=== PATIENT | male | born 1955 | race Caucasian/White ===

== ENCOUNTER 2022-02-20 14:38 | Inpatient (IN) ==
[2022-02-20 15:23] LABS: Basophils # (auto) 0.03 K/uL (0-0.2); Basophils % (auto) 0.3 %; Eosinophils # (auto) 0.45 K/uL (0-0.50); Eosinophils % (auto) 4.6 %; Hematocrit (blood only) 30.1 % (40.1-51.0); Hemoglobin 9.8 g/dl (14.0-18.0); Immature Granulocytes # (auto) 0.05 K/uL (0.00-0.02); Immature Granulocytes % (auto) 0.5 %; Lymphocytes # (auto) 1.79 K/uL (1.2-3.4); Lymphocytes % (auto) 18.5 %; Mean Corpuscular Hemoglobin 28.1 pg (25.0-34.0); Mean Corpuscular Hgb Conc 32.6 g/dL (32.0-36.0); Mean Corpuscular Volume 86.2 fL (80.0-100.0); Mean Platelet Volume 8.3 fL (9.4-12.4); Monocytes % (auto) 11.3 %; Neutrophils # (auto) 6.28 K/uL (1.4-6.5); Neutrophils % (auto) 64.8 %; Platelet Count 258 K/uL (130-400); RDW Coefficient of Variation 13.3 % (11.5-14.5); RDW Standard Deviation 41.6 fL (36.4-46.3); Red Blood Count 3.49 M/uL (4.63-6.08)
[2022-02-20 15:44] LABS: Albumin Level 3.7 gm/dl (3.4-5.0); BUN Creatinine Ratio 22.2 (10-20); Bilirubin,Total 0.5 mg/dl (0.2-1.0); Creatinine Clr Calc Pharmacy 101.5 ml/min; Est GFR (African American) 101.4 ml/min; Est GFR (Non-African American) 87.5 ml/min; Globulin 3.7 gm/dl (2.5-4.0); Total Protein 7.4 gm/dl (6.0-8.3)
--- NOTE | 2022-02-20 17:05 | Emergency Department Note ---
Impression & Plan Hematoma of left knee region, Anemia, History of left knee replacement ED Provider Note NAME: ALECIA WILDER AGE: 66 SEX: M : 1955 ARRIVES VIA: Walk-In INFORMANT: [Patient][, ] ED PROVIDER(S): [Levi Casanova MD] CHIEF COMPLAINT: Referred by HISTORY OF PRESENT ILLNESS: The patient is a 66-year-old male who states that around a month ago, he had his left knee replaced. This was done by Dr. Mena of orthopedics. The patient states that ever since the surgery, he has had some swelling and some oozing/bleeding. The patient states that 3 days ago, the rupert were removed and he has been bleeding more. Today, he saw Dr. Gonzalez at the [facility] and he was referred to the ED for hospitalization and OR washout. They believe the patient has a large hematoma that requires orthopedic intervention. There has been no fever although, 3 days ago when the rupert were removed, the patient did have some chills. Patient is able to walk on the knee with minimal discomfort. He has not had cough, cold or congestion. He is on baby aspirin twice a day, no other blood thinning agents. REVIEW OF SYSTEMS: See HPI for pertinent positives and negatives. A total of ten systems were reviewed and were otherwise negative. PMHx/PSHx: See Below SOCIAL HISTORY: See Below. PHYSICAL EXAM: GENERAL: Patient is in no acute distress. HEENT: No acute trauma, normocephalic atraumatic, mucous membranes moist, no nasal congestion, no scleral icterus. NECK: No stridor, no adenopathy, no meningismus, trachea is midline. LUNGS: Clear to auscultation bilaterally, no wheeze, no rhonchi, breath sounds equal. HEART: Without murmurs gallops or rubs, regular rate and rhythm. ABDOMEN: Soft, nontender, bowel sounds positive, no peritonitis. EXTREMITIES: No cyanosis. The patient has oozing on his bandage that is across the left anterior knee. The rupert have been removed. There is a significant amount of prepatellar swelling with some erythema and warmth. The superior aspect of the wound does have an opening with a clot noted. NEUROLOGIC: Oriented x 3, no acute motor or sensory deficits, no focal weakness. SKIN: No jaundice, no diaphoresis. DIFFERENTIAL DIAGNOSIS: Hematoma, cellulitis, septic joint, coagulopathy, anemia, electrolyte imbalance, among others. EMERGENCY DEPARTMENT COURSE/PROCEDURES: MEDICAL DECISION MAKING: There is no leukocytosis. The patient's hemoglobin is low, this is about a four-point drop for him although, he is not in need of an emergent blood transfusion. There was a normal platelet count. No renal failure or significan t electrolyte abnormality. No concerning liver enzyme elevation. COVID test was negative. On exam, the patient had a large hematoma in the area of the left anterior knee. There was some surrounding erythema and warmth. He was not febrile or toxic. The patient was sent to the hospital for orthopedic intervention tomorrow. A hospital stay overnight was recommended by his orthopedist. I did speak with orthopedics. The patient is being hospitalized for his procedure tomorrow. The patient is aware of the need for the hospital stay. He is currently resting comfortably. Case management has been involved. Past Med/Surg History Medical History Osteoarthritis Surgical History History of arthroscopy of left knee History of arthroscopy of right knee History of back surgery History of carpal tunnel release of both wrists History of total right knee replacement Hx of colonoscopy Status post reverse total replacement of right shoulder Right reverse TSA (07/19/20): LMA#5 + PNB at [facility]. No issues noted per post-op anesthesia progress note. 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 Required: No Beliefs That Will Affect Care: Jain Jain Beliefs: Episcopalian Current Living Situation: Spouse current occupational status: employed Feels Safe at Home: Yes Physical Activity Frequency: 3-4 Times per Week Assistive Devices: Glasses Allergies Allergies Allergy/AdvReac Type Severity Reaction Status Date / Time No Known Allergies Allergy Verified 02/20/22 18:26 Home Meds Home Medications Medication Instructions Recorded Confirmed sildenafil 100 mg tablet (Viagra) 100 mg PO DAILY PRN INTERCOURSE 06/05/19 02/20/22 ascorbic acid (vitamin C) 500 mg 500 mg PO DAILY 12/24/21 02/20/22 tablet (Vitamin C) cholecalciferol (vitamin D3) 25 25 mcg PO DAILY 12/24/21 02/20/22 mcg (1,000 unit) capsule (Vitamin D3) oregano oil 1,500 mg capsule 1,500 mg PO DAILY 12/24/21 02/20/22 tangerine oil (bulk) ([place] 1 ea miscellaneous DAILY 12/24/21 02/20/22 Oil, Natural) turmeric 400 mg capsule 400 mg PO DAILY 12/24/21 02/20/22 zinc 50 mg tablet 50 mg PO DAILY 12/24/21 02/20/22 quercetin 500 mg capsule 500 mg PO DAILY 02/20/22 02/20/22 Previous Rx's Medication Instructions Recorded aspirin 81 mg tablet,delayed 81 mg PO BID #84 tabs 01/22/22 release oxycodone-acetaminophen 5 mg-325 1 tab PO Q6H PRN pain #30 tabs 01/22/22 mg tablet (Percocet) doxycycline hyclate 100 mg tablet 100 mg PO BID #20 tabs 02/20/22 sulfamethoxazole 800 1 tab PO BID #20 tabs 02/20/22 mg-trimethoprim 160 mg tablet (Bactrim DS) Results & Data (ED) Vital Signs Vital Signs - 24 hr 02/20/22 14:56 02/20/22 16:39 02/20/22 20:08 Temperature 37 C Temperature Source Temporal Artery Scan Pulse Rate 107 H Pulse Rate [Left] 80 104 H Respiratory Rate 18 20 18 Respiratory Effort / Characteristics Non-Labored Spontaneous Non-Labored Respiratory Depth Normal Normal Respiratory Pattern Regular Blood Pressure 120/73 Blood Pressure [Left Arm] 108/82 Blood Pressure Mean 88 Blood Pressure Mean [Left Arm] 90 Blood Pressure Position Sitting Pulse Oximetry 100 97 98 Oxygen Delivery Method Room Air Room Air Room Air Sepsis Recent Fever Within 48 Hours No Sepsis New/Unexplained Change in Mental Status No Sepsis Action Taken by Nursing No Action Required Home Medications Current Medication List: was personally reviewed by me Laboratory Data Attestation: I reviewed the patient's lab results. Result diagrams: 02/20/22 15:15 02/20/22 15:15 Lab Results 02/20/22 02/20/22 02/20/22 Range/Units 15:15 15:15 15:18 WBC 9.70 (4.8-10.8) K/ul RBC 3.49 L (4.63-6.08) M/uL Hgb 9.8 L (14.0-18.0) g/dl Hct 30.1 L (40.1-51.0) % MCV 86.2 (80.0-100.0) fL MCH 28.1 (25.0-34.0) pg MCHC 32.6 (32.0-36.0) g/dL RDW Std Deviation 41.6 (36.4-46.3) fL RDW Coeff of Moises 13.3 (11.5-14.5) % Plt Count 258 (130-400) K/uL MPV 8.3 L (9.4-12.4) fL Immature Gran % (Auto) 0.5 % Neut % (Auto) 64.8 % Lymph % (Auto) 18.5 % Forest % (Auto) 11.3 % Eos % (Auto) 4.6 % Baso % (Auto) 0.3 % Neut # (Auto) 6.28 (1.4-6.5) K/uL Lymph # (Auto) 1.79 (1.2-3.4) K/uL Forest # (Auto) 1.10 H (0.24-0.82) K/uL Eos # (Auto) 0.45 (0-0.50) K/uL Baso # (Auto) 0.03 (0-0.2) K/uL Immature Gran # (Auto) 0.05 H (0.00-0.02) K/uL ESR 61 H (0-20) mm/hr Sodium 137 (136-145) mmol/L Potassium 4.0 (3.5-5.1) mmol/L Chloride 103 (98-107) mmol/L Carbon Dioxide 28 (21-32) mmol/L Anion Gap 6 (3-11) BUN 20 (6-23) mg/dl Creatinine 0.90 (0.6-1.4) mg/dl Est Cr Clr Drug Dosing 101.5 ml/min Est GFR ( Amer) 101.4 ml/min Est GFR (Non-Af Amer) 87.5 ml/min BUN/Creatinine Ratio 22.2 H (10-20) Glucose 107 H (70-99(Fasting)) mg/dl Calcium 9.0 (8.5-10.1) mg/dl Total Bilirubin 0.5 (0.2-1.0) mg/dl AST 17 (13-39) U/L ALT 15 (7-52) U/L Alkaline Phosphatase 61 (34-104) U/L C-Reactive Protein (0-0.5) mg/dl Total Protein 7.4 (6.0-8.3) gm/dl Albumin 3.7 (3.4-5.0) gm/dl Globulin 3.7 (2.5-4.0) gm/dl Albumin/Globulin Ratio 1.0 (0.9-2) SARS-CoV-2, RNA, NAAT (NEGATIVE) 02/20/22 02/20/22 Range/Units 15:18 17:07 WBC (4.8-10.8) K/ul RBC (4.63-6.08) M/uL Hgb (14.0-18.0) g/dl Hct (40.1-51.0) % MCV (80.0-100.0) fL MCH (25.0-34.0) pg MCHC (32.0-36.0) g/dL RDW Std Deviation (36.4-46.3) fL RDW Coeff of Moises (11.5-14.5) % Plt Count (130-400) K/uL MPV (9.4-12.4) fL Immature Gran % (Auto) % Neut % (Auto) % Lymph % (Auto) % Forest % (Auto) % Eos % (Auto) % Baso % (Auto) % Neut # (Auto) (1.4-6.5) K/uL Lymph # (Auto) (1.2-3.4) K/uL Forest # (Auto) (0.24-0.82) K/uL Eos # (Auto) (0-0.50) K/uL Baso # (Auto) (0-0.2) K/uL Immature Gran # (Auto) (0.00-0.02) K/uL ESR (0-20) mm/hr Sodium (136-145) mmol/L Potassium (3.5-5.1) mmol/L Chloride (98-107) mmol/L Carbon Dioxide (21-32) mmol/L Anion Gap (3-11) BUN (6-23) mg/dl Creatinine (0.6-1.4) mg/dl Est Cr Clr Drug Dosing ml/min Est GFR ( Amer) ml/min Est GFR (Non-Af Amer) ml/min BUN/Creatinine Ratio (10-20) Glucose (70-99(Fasting)) mg/dl Calcium (8.5-10.1) mg/dl Total Bilirubin (0.2-1.0) mg/dl AST (13-39) U/L ALT (7-52) U/L Alkaline Phosphatase (34-104) U/L C-Reactive Protein 7.07 H (0-0.5) mg/dl Total Protein (6.0-8.3) gm/dl Albumin (3.4-5.0) gm/dl Globulin (2.5-4.0) gm/dl Albumin/Globulin Ratio (0.9-2) SARS-CoV-2, RNA, NAAT NEGATIVE (NEGATIVE) Administered Medications Sodium Chloride (Nss 1000ml) 1,000 mls @ 80 mls/hr IV .[id number] AWA Stop: 03/22/22 20:31 Last Admin: 02/20/22 22:24 Dose: 80 mls/hr Documented By: AB Discharge Plan Visit Data Chief Complaint: Referred by Doctor Stated Complaint: KNEE REPLACEMENT 01/26, REF BY , HEMOTOMA ED Provider: Levi Casanova Discharge Problem: Hematoma of left knee region, Anemia, History of left knee replacement Patient Disposition: Admitted As Inpatient Condition: Good Discharge Instructions Interventions: ED Discharge Assessment Last Done: 02/20/22 20:11
--- NOTE | 2022-02-20 17:28 | History & Physical Report ---
Date of Service February 20, 2022 Assessment & Plan (1) Hematoma of left knee region: We will plan to proceed with the irrigation and debridement of the left knee hematoma first thing tomorrow morning. He will be n.p.o. past midnight tonight. He understands the risk, benefits, and alternatives to procedures like to proceed. Time was spent scribing the procedure and postop expectations. He understands he may require a full knee polyethylene exchange as well if I am concerned for infection. I will obtain a CBC, CRP, and sed rate preoperatively. History of Present Illness Chief Complaint: Hematoma left knee. Primary Care Provider: Rae Gutierrez PA-C Rolan is a pleasant 66-year-old male who underwent a left knee replacement 4 weeks ago. Postoperatively he developed a hematoma of his left knee. It was never really draining. We are trying to let it absorb on its own. He had a sutures out over a week ago. Unfortunately still dealing with the hematoma and he started to have some breakdown of the wound. He started to have a little bit of bloody discharge. There is no signs of infection. He is not having much pain deep within the knee. He came to the emergency room for evaluations. Orthopedics decided to admit him to the hospital for open irrigation debridement of a left knee hematoma tomorrow.. Allergies Allergy/AdvReac Type Severity Reaction Status Date / Time No Known Allergies Allergy Verified 12/24/21 10:06 Home Medications Medication Instructions Recorded Confirmed Type sildenafil 100 mg tablet (Viagra) 100 mg PO DAILY PRN INTERCOURSE 06/05/19 01/26/22 History Quercetin 1 dose PO DAILY 12/24/21 01/26/22 History ascorbic acid (vitamin C) 500 mg 500 mg PO DAILY 12/24/21 01/26/22 History tablet (Vitamin C) cholecalciferol (vitamin D3) 25 25 mcg PO DAILY 12/24/21 01/26/22 History mcg (1,000 unit) capsule (Vitamin D3) oregano oil 1,500 mg capsule 1,500 mg PO DAILY 12/24/21 01/26/22 History tangerine oil (bulk) ([place] 1 ea miscellaneous DAILY 12/24/21 01/26/22 History Oil, Natural) turmeric 400 mg capsule 400 mg PO DAILY 12/24/21 01/26/22 History zinc 50 mg tablet 50 mg PO DAILY 12/24/21 01/26/22 History aspirin 81 mg tablet,delayed 81 mg PO BID #84 tabs 01/22/22 01/26/22 Rx release celecoxib 200 mg capsule (Celebrex) 200 mg PO BID #28 caps 01/22/22 01/26/22 Rx oxycodone-acetaminophen 5 mg-325 1 tab PO Q6H PRN pain #30 tabs 01/22/22 01/26/22 Rx mg tablet (Percocet) doxycycline hyclate 100 mg tablet 100 mg PO BID #20 tabs 02/20/22 Rx sulfamethoxazole 800 1 tab PO BID #20 tabs 02/20/22 Rx mg-trimethoprim 160 mg tablet (Bactrim DS) Past Med/Surg History Medical History Osteoarthritis Surgical History History of arthroscopy of left knee History of arthroscopy of right knee History of back surgery History of carpal tunnel release of both wrists History of total right knee replacement Hx of colonoscopy Status post reverse total replacement of right shoulder Right reverse TSA (07/19/20): LMA#5 + PNB at [facility]. No issues noted per post-op anesthesia progress note. 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 Physical Exam On physical examination of the left knee, there is a large anterior hematoma. I am able to express a little bit of serosanguineous discharge. There is no erythema. There is no pus or any signs of infection.. Constitutional WD/WN, vitals as above Eyes PERRL, conjunctivae normal, anicteric sclerae ENMT external ear and nose normal, oropharynx normal Neck trachea midline, no thyromegaly Respiratory normal respiratory effort, lungs clear to auscultation Cardiovascular RRR, no murmur, no edema Gastrointestinal (Abdomen) normal bowel sounds, soft, nontender, no hepatosplenomegaly Skin no rashes, warm and dry Psychiatric A+Ox3, euthymic affect Results & Data Results & Data Laboratory Results . Diagnostic Findings . PG Care Time/CCT Total # of Minutes Spent Total Time Spent with Patient: Total time spent is greater than 50% in coordination of care (as documented) at patient's floor/unit and/or counseling patient: Coding Level of Care Code 65355 Initial Inpt Care Lvl 2 (57 - DECISION FOR SURGERY) Diagnoses Hematoma of left knee region S80.02XA
[2022-02-20] MEDS ORDERED: oxyCODONE/ACETAMINOPHEN 5mg/325mg TAB PO PRN (20:32)
[2022-02-20] MEDS: SODIUM CHLORIDE 0.9% 1000ML 1,000 ML IV SCH (22:24)
[2022-02-21] MEDS ORDERED: ceFAZolin 2000MG 2,000 MG/15 ML SYR IV SCH (06:00)
[2022-02-21] MEDS ORDERED: PROPOFOL IV EMULSION 10 MG/ML 20 ML VIAL IV ONE (07:03)
[2022-02-21] MEDS ORDERED: DEXAMETHASONE SOD INJ 4 MG/ML VIAL ONE (07:03)
[2022-02-21] MEDS ORDERED: fentaNYL citrate 100 MCG/2 ML VIAL ONE ×2 (07:03)
[2022-02-21] MEDS ORDERED: MIDAZOLAM HCL 1 MG/ML 2ML VIAL ONE (07:03)
[2022-02-21] MEDS ORDERED: ONDANSETRON INJ 2 MG/ML 2 ML VIAL ONE (07:03)
--- NOTE | 2022-02-21 07:34 | Anesthesiology Consultation ---
Date of Service February 21, 2022 Assessment & Plan (1) Encounter for pre-operative examination: Chart Review Chart Review: Acceptable Risk for Surgery and Patient NOT seen in Pre Admission Testing Consults Requested none History Surgery Operation Date: 02/21/22 07:30 Proposed Procedures p Left Incision and Drainage Hematoma Knee - Wellington Mena DO s Possible Poly Exchange Left Knee - Wellington Mena DO Height/Weight Height: 6 ft 2 in Weight: 103.4 kg Allergies Allergy/AdvReac Type Severity Reaction Status Date / Time No Known Allergies Allergy Verified 02/20/22 18:26 Medications Home Medications Medication Instructions Recorded Confirmed Last Taken sildenafil 100 mg tablet (Viagra) 100 mg PO DAILY PRN INTERCOURSE 06/05/1912/26/21 ascorbic acid (vitamin C) 500 mg 500 mg PO DAILY 12/24/21 02/20/22 01/22/22 tablet (Vitamin C) cholecalciferol (vitamin D3) 25 25 mcg PO DAILY 12/24/21 02/20/22 01/22/22 mcg (1,000 unit) capsule (Vitamin D3) oregano oil 1,500 mg capsule 1,500 mg PO DAILY 12/24/21 02/20/22 01/20/22 tangerine oil (bulk) ([place] 1 ea miscellaneous DAILY 12/24/21 02/20/2201/08 Oil, Natural) turmeric 400 mg capsule 400 mg PO DAILY 12/24/21 02/20/22 12/26/21 zinc 50 mg tablet 50 mg PO DAILY 12/24/21 02/20/22 01/22/22 aspirin 81 mg tablet,delayed 81 mg PO BID #84 tabs 01/22/22 02/20/22 Unknown release oxycodone-acetaminophen 5 mg-325 1 tab PO Q6H PRN pain #30 tabs 01/22/22 02/20/22 Unknown mg tablet (Percocet) doxycycline hyclate 100 mg tablet 100 mg PO BID #20 tabs 02/20/22 02/20/22 Unknown quercetin 500 mg capsule 500 mg PO DAILY 02/20/22 02/20/22 Unknown sulfamethoxazole 800 1 tab PO BID #20 tabs 02/20/22 02/20/22 Unknown mg-trimethoprim 160 mg tablet (Bactrim DS) Active Medications Generic Name Dose Route Start Last Admin Trade Name Jose R PRN Reason Stop Dose Admin Sodium Chloride 1,000 mls @ 80 mls/hr 02/20/22 20:32 02/20/22 22:24 Nss 1000ml IV 03/22/22 20:31 80 mls/hr .[id number] AWA Administration NPO Date Last Intake of Fluids: 02/20/22 Time Last Intake of Fluids: 23:28 Date Last Intake of Solids: 02/20/22 Time Last Intake of Solids: 21:00 Past Medical History Medical History Osteoarthritis Past Family History Family History Father Diabetes Colorectal cancer Mother Brain cancer Diabetes Other No family history of adverse response to anesthesia Past Surgical History Surgical History History of arthroscopy of left knee History of arthroscopy of right knee History of back surgery History of carpal tunnel release of both wrists History of total right knee replacement Hx of colonoscopy Status post reverse total replacement of right shoulder Right reverse TSA (07/19/20): LMA#5 + PNB at [facility]. No issues noted per post-op anesthesia progress note. Social History Smoking Status: Never smoker Hx Alcohol Use: No Hx Substance Use: No substance use type: does not use Physical Exam Vital Signs Last Vital Signs Temp 37.5 C 02/20/22 20:20 Pulse 111 H 02/20/22 23:15 Resp 14 02/20/22 20:20 BP 138/84 02/20/22 20:20 Pulse Ox 100 02/20/22 20:20 O2 Del Method 02/20/22 20:20 Testing Laboratory Results 02/20/22 15:15 02/20/22 15:15 Electrocardiogram Date: 02/20/22 Findings: + ST @ (104)
--- NOTE | 2022-02-21 07:34 | History & Physical Bridge Note ---
Date of Service February 21, 2022 History & Physical Bridge Note I have examined the patient, reviewed the History & Physical and in the interval since the performance of the History & Physical I have noted the following changes of clinical significance: no changes noted
[2022-02-21] MEDS ORDERED: HYDROmorphone INJ 1 MG/ML SYRINGE IV PRN (07:36)
[2022-02-21] MEDS ORDERED: ATROPINE SULFATE 0.1 MG/ML 10ML SYR IV PRN (07:36)
[2022-02-21] MEDS ORDERED: ONDANSETRON INJ 2 MG/ML 2 ML VIAL IV PRN (07:36)
[2022-02-21] MEDS ORDERED: PHENYLEPHRINE 100MCG/ML 5ML SYR IV PRN (07:36)
[2022-02-21] MEDS ORDERED: LABETALOL HCL IV 5 MG/ML 20ML IV PRN (07:36)
[2022-02-21] MEDS ORDERED: MEPERIDINE HCL 25 MG/ML CARP/VIAL IV PRN (07:36)
[2022-02-21] MEDS ORDERED: fentaNYL citrate 100 MCG/2 ML VIAL IV PRN (07:36)
[2022-02-21] MEDS ORDERED: ePHEDrine sulfate 50 MG/ML AMP IV PRN (07:36)
[2022-02-21] MEDS ORDERED: KETOROLAC 30 MG/ML VIAL ONE (08:15)
--- NOTE | 2022-02-21 08:37 | Operative Report ---
PG Post Operative Report Pre & Post Diagnosis Operation Date: 02/21/22 07:30 Pre-Op Diagnosis: Left knee hematoma Post-Op Diagnosis: Left knee hematoma I identified the patient and participated in the time-out.: Yes Procedure Operation Date: 02/21/22 07:30 Actual Procedures pEvacuation hematoma of the left knee (Left) - Wellingotn Mena DO Surgeon Wellington Mena, Glacing Machine Tender Wellington Velasco PA-C Estimated Blood Loss 20 Findings Consistent with Post-Op Diagnosis Large hematoma of the left knee Specimens Intra-articular fluid aspiration sent for cell count with cultures and sensitivity Indications Rloan is a pleasant 66-year-old male who underwent a knee replacement about 4 weeks ago. He had a lot of intra-articular oozing. I was able to control most of it after the tourniquet was down. He was on aspirin for DVT prophylaxis. Unfortunately he developed a large hematoma of his left knee. The incision looks good and there was no signs of infection. We continue to treat her conservatively with ice and elevation. Unfortunately the hematoma started to break down some of his wound and he was beginning to have some serous drainage. He came to the emergency room. Sed rate and CRP were moderately elevated. He had no fever and normal white blood cell count. He says his knee has been improving overall but has been hindered by the large anterior hematoma. He has had no significant increase in pain in the left knee. He was admitted to the orthopedic service for open evacuation hematoma of the left knee. Description of Procedure On February 21 Rolan was brought down from the hospital room to the preoperative holding area. The operative extremity identified and signed. He was given 2 g of Ancef. He was taken back the operating room and laid on the table in supine position. He was put under general anesthesia. The right knee was prepped and draped in sterile fashion. A timeout was done. The patient and the operative extremity was properly identified. The middle third of the incision was opened back up. There was no signs of infection. There is no purulent discharge. There was a very large hematoma that was evacuated. It was mostly coagulated. Significant time was spent evacuating the entire hematoma through the open incision. Once the hematoma was fully evacuated the area anterior to the extensor mechanism was irrigated with 3 L normal saline solution. The wound did not seem to communicate with the knee. A spinal needle was used to aspirate the left knee. I was able to aspirate about 25 cc of straw-colored fluid. It did not appear to be infected. I did se nd this to lab for cell count with differential as well as cultures and sensitivities. I put his knee through a full range of motion and everything felt to be stable. The wound was once again irrigated. The tourniquet was deflated and hemostasis was easily controlled. There was not much bleeding at this time. I do not feel the need to place a drain. The incision was closed with 2-0 Vicryl and 2-0 nylon suture in a mattress fashion. He was then placed in a soft compressive dressing. He was then extubated and transferred to a [facility]. He was taken to the postanesthesia care unit in stable condition. He tolerated the procedure well. I attest to the content of the Intraoperative Record and any orders documented therein. Any exceptions are noted below.
--- NOTE | 2022-02-21 08:55 | Anesthesiology Progress Note ---
Date of Service February 21, 2022 Anesthesia Post Procedure Vital Signs Vital Signs: Temp Pulse Pulse Pulse Resp BP BP 02/20/22 23:15 111 H 02/20/22 20:20 37.5 C 117 H 14 02/20/22 20:08 104 H 18 108/82 02/20/22 16:39 80 20 02/20/22 14:56 37 C 107 H 18 120/73 BP Pulse Ox O2 Del Method 02/20/22 23:15 02/20/22 20:20 138/84 100 Room Air 02/20/22 20:08 98 Room Air 02/20/22 16:39 97 Room Air 02/20/22 14:56 100 Room Air Pain Intensity Left Knee: Pain Intensity: 3 Transfer of Care Handoff Completed per policy Notes Mental Status: alert / awake / arousable Patient Amnestic to Procedure: Yes Nausea / Vomiting: adequately controlled Pain: adequately controlled Airway Patency, RR, SpO2: stable & adequate BP & HR: stable & adequate Hydration State: stable & adequate Anesthetic Complications: no major complications apparent and Pt Satisfied with anesthetic care Notes: The patient is awake and comfortable.
[2022-02-21 09:17] LABS: Mononuclear WBC Synovial 31.5 %; Polynuclear WBC Synovial 68.5 %
[2022-02-21 09:18] LABS: Appearance Synovial Fluid Bloody; Color Synovial Fluid Red; RBC Synovial Fluid (A) 63000 /uL; Source Synovial Fluid Knee; WBC Synovial Fluid (A) 1333 /ul (0-200)
[2022-02-21] MEDS ORDERED: MAGNESIUM HYDROXIDE SUSP 30 ML UDC PO PRN (09:21)
[2022-02-21] MEDS ORDERED: bisacodyL 10 MG SUPP PR PRN (09:21)
[2022-02-21] MEDS ORDERED: SODIUM CHLORIDE 0.9% 1000ML 1,000 ML IV SCH (09:21)
[2022-02-21] MEDS ORDERED: NALOXONE HCL 0.4 MG/1 ML VIAL/CARP IV PRN (09:21)
[2022-02-21] MEDS ORDERED: METOCLOPRAMIDE HCL INJ 5 MG/ML 2 ML VIAL IV PRN (09:21)
[2022-02-21] MEDS: SODIUM CHLORIDE 0.9% 1000ML 1,000 ML IV SCH ×2 (10:12→21:40)
[2022-02-21] MEDS: ASPIRIN 81 MG ECTAB PO SCH ×2 (10:40→21:40)
[2022-02-21] MEDS: DOCUSATE SODIUM 100 MG CAP PO SCH ×2 (10:40→21:39)
[2022-02-21] MEDS: MULTIVITAMIN TAB PO SCH (10:40)
[2022-02-21] MEDS: KETOROLAC TROMETHAMINE 15 MG/ML VIAL IV SCH ×3 (10:42→21:39)
--- NOTE | 2022-02-21 11:15 | Electrocardiogram Report ---
Test Reason : Blood Pressure : / mmHG Vent. Rate : 104 BPM Atrial Rate : 104 BPM P-R Int : 158 ms QRS Dur : 084 ms QT Int : 340 ms P-R-T Axes : 040 -35 027 degrees QTc Int : 447 ms Sinus tachycardia Left anterior fascicular block Abnormal ECG When compared with ECG of 29-DEC-2021 10:15, No significant change was found Confirmed by Chuy Foster ([id number]) on 02/21/2022 11:15:21 AM Referred By: Wellington Mena Confirmed By:Chuy Foster
[2022-02-21] MEDS: ceFAZolin 2000MG 2,000 MG/15 ML SYR IV SCH ×2 (15:02→21:52)
[2022-02-21] MEDS ORDERED: SENNA 8.6 MG TAB PO SCH (21:00)
[2022-02-22] MEDS: KETOROLAC TROMETHAMINE 15 MG/ML VIAL IV SCH ×2 (03:49→11:18)
[2022-02-22] MEDS ORDERED: dexAMETHasone 4 MG TAB PO SCH (08:00)
[2022-02-22] MEDS: DOCUSATE SODIUM 100 MG CAP PO SCH (08:37)
[2022-02-22] MEDS: MULTIVITAMIN TAB PO SCH (08:38)
[2022-02-22] MEDS: ASPIRIN 81 MG ECTAB PO SCH (08:38)
--- NOTE | 2022-02-22 08:51 | Orthopedic Progress Note ---
Date of Service February 22, 2022 Assessment & Plan (1) Status post left knee replacement: Overall he is doing very well. The initial Gram stains from the intra-articular aspiration did not show any organisms. The cell count did not show any evidence of infection. Overall he is doing well. He can be discharged home later today. He is on aspirin for DVT prophylaxis. He will be seen by physical therapy today for ambulation and range of motion exercises. He will follow-up orthopedics in 2 weeks. Eric Gongora was seen and examined at bedside this morning. Overall is doing very well. He is not having much pain in the left knee. He has been up and ambulated to the bathroom. He has no complaints.. Review of Systems All systems reviewed & are unremarkable except as noted in HPI & below. Physical Exam On physical examination of left knee, the dressing is clean and dry. His leg is out full extension. He has active dorsiflexion and plantarflexion of the left ankle.. Results & Data Results & Data Laboratory Results . Diagnostic Findings . PG Care Time/CCT Total # of Minutes Spent Total Time Spent with Patient: Total time spent is greater than 50% in coordination of care (as documented) at patient's floor/unit and/or counseling patient: Coding Level of Care Code 64332 Post Operative Follow-Up Diagnoses Status post left knee replacement Z96.652
--- NOTE | 2022-02-22 08:52 | Discharge Summary ---
Date of Service February 22, 2022 Admission HPI (Per Admitting) Rolan is a pleasant 66-year-old male who underwent a left knee replacement 4 weeks ago. Postoperatively he developed a hematoma of his left knee. It was never really draining. We are trying to let it absorb on its own. He had a sutures out over a week ago. Unfortunately still dealing with the hematoma and he started to have some breakdown of the wound. He started to have a little bit of bloody discharge. There is no signs of infection. He is not having much pain deep within the knee. He came to the emergency room for evaluations. Orthopedics decided to admit him to the hospital for open irrigation debridement of a left knee hematoma tomorrow.. Admission Exam (Per Admitting) On physical examination of the left knee, there is a large anterior hematoma. I am able to express a little bit of serosanguineous discharge. There is no erythema. There is no pus or any signs of infection.. Principal Diagnosis Same as "Discharge Diagnosis" noted below under Discharge Instructions. Discharge Exam On physical examination of left knee, the dressing is clean and dry. His leg is out full extension. He has active dorsiflexion and plantarflexion of the left ankle.. Discharge Data Consultations 02/20/22 17:34 ED Decision to Admit Stat Procedures Performed Operation Date: 02/21/22 07:30 Actual Procedures p Left Incision and Drainage Hematoma Knee(Left) - Wellington Mena DO Hospital Course (1) Status post left knee replacement: On February 20 2022 Rolan arrived at [facility] emergency room with a large hematoma of the left knee and early stages of wound breakdown. He is about 4 weeks status post knee replacement surgery. He was admitted to the orthopedic service. The following day he was taken to the operating room and underwent an evacuation of the hematoma. I also aspirated the knee joint and sent it for lab work-up. There were no signs of infection throughout the case. Postoperatively he was started on Ancef for antimicrobial prophylaxis. He was started back on his aspirin and transferred to the general orthopedic floors. On postop day #1, his vital signs were stable and his pain was well controlled. His knee was feeling much better. He was up and ambulating to the bathroom without any difficulty. The initial gram stain showed no organisms. The cell count did not show any signs of infection. He was then discharged home on oral pain medications and aspirin for DVT prophylaxis. He will follow with orthopedics in 2 weeks. PG Care Time/CCT Total # of Minutes Spent Total Time Spent with Patient: Total time spent is greater than 50% in coordination of care (as documented) at patient's floor/unit and/or counseling patient: Discharge Plan Discharge Items Patient Disposition: Home - Home Health Services Reason For Visit: LEFT KNEE HEMATOMA Discharge Diagnosis: Evacuation hematoma left knee Condition on Discharge: Good Activity: Per Instructions section Non-emergency contact: Surgeon Call non-emergency contact if: your wound has increased redness and your wound has increased drainage Follow-up/Referrals: Rae Gutierrez PA-C [Primary Care Provider] - Diet: Regular Addtl Attending Provider Instructions: Activity and Therapy Recommendations: * If you are using [facility] then therapy will be provided at your home until they feel you have accomplished all of your goals. * If you are using [facility] then Physical Therapy will be provided until they feel you are ready to start Outpatient Physical Therapy. * If you are not using home therapy then Outpatient Physical Therapy should start about 3-5 days from your day of surgery. Therapy will last about 6-10 weeks * It is important not to put a pillow under your knee when you are relaxing or sleeping. It is just as important to make sure you are getting your knee perfectly straight as it is to regain your knee bend. * You were shown a series of exercises in the hospital. Do these exercises three times each day including the exercises you were shown in physical therapy. * Get up and walk several times each day. For the first four weeks, try not to stand or walk for more than one hour at a time. If you do stand or walk for more than one hour, you will not hurt anything, but your leg will likely swell. * As you feel comfortable, you may change from the walker or crutches to a cane and then to independent walking. Medications: * Narcotic You will likely be sent home from the hospital with a prescription for the narcotic pain medication that worked best throughout your stay. * Aspirin Most patients will be required to take Aspirin 81mg twice a day for 6 weeks after surgery. This is obtained [id number] and a prescription is not necessary. * Other medications may be prescribed for specific circumstances. If you have any questions, please call the office at . * Resume previous home medications unless otherwise instructed TEDs/Elastic Stockings: The white elastic stockings help limit swelling and prevent blood clots from forming in your legs.~ The more you wear them, the more they work. Wear them for six weeks. Dressing Care: The dressing can be changed after physical therapy on postop day #1. Daily dry dressing changes for a few days, especially if the incision is still draining some. If the incision is not draining then you may leave the rupert open to air. If there is a little bit of drainage or if the rupert are getting stuck on your clothing then cover the incision with a dry dressing. The rupert will be removed at your 2 week follow-up appointment. Showering: You may shower 5 days from the day of surgery as long as the incision is no longer draining. You may shower with the rupert exposed. Let soapy water run over the rupert and pat them dry. Do not scrub or soak the incision. Things To Watch For: * Drainage from the incision site that occurs more than one week after your surgery. * Increased redness at the incision site. * Fever above 102 degrees Fahrenheit. * Unusual chest pain or shortness of breath. * Call [facility] at with any of the above problems Follow-Up Visit: Follow-up with Dr. Mena 2 to 3 weeks after the day of surgery Please call the office to schedule an appointment for a time that works for you [phone] Office Instructions: More detailed instructions as well as Frequently Asked Questions were provided in a folder by our office when you signed-up for surgery. Please review these instructions when you get home. If you have any further questions or concerns, please feel free to call the office at [phone] Pending Studies at Discharge: No Stand-Alone Forms: My [facility] [employer] [facility], Smoking Cessation Medications and DC Order Prescriptions: Continued aspirin 81 mg tablet,delayed release (DR/EC) 81 mg PO BID Qty: 84 0RF sulfamethoxazole-trimethoprim [Bactrim DS] 800-160 mg tablet 1 tab PO BID Qty: 20 0RF doxycycline hyclate 100 mg tablet 100 mg PO BID Qty: 20 0RF sildenafil [Viagra] 100 mg Tablet 100 mg PO DAILY PRN (Reason: INTERCOURSE) ascorbic acid (vitamin C) [Vitamin C] 500 mg Tablet 500 mg PO DAILY zinc 50 mg Tablet 50 mg PO DAILY cholecalciferol (vitamin D3) [Vitamin D3] 25 mcg (1,000 unit) Capsule 25 mcg PO DAILY oregano oil 1,500 mg Capsule 1,500 mg PO DAILY tangerine oil (bulk) [[place] Oil, Natural] Oil 1 ea MISCELLANEOUS DAILY turmeric 400 mg Capsule 400 mg PO DAILY quercetin 500 mg Capsule 500 mg PO DAILY oxycodone-acetaminophen [Percocet] 5-325 mg tablet 1 tab PO Q6H PRN (Reason: pain) Qty: 20 0RF Discharge Orders: Discharge Order (Routine); Ordered 02/22/22 Ordered By: Wellington Mena Admission Data Admit Date/Time: 02/20/22 20:28 Attending Provider: Wellington Mena Admit Provider: Wellington Mena Primary Care Provider: Rae Gutierrez Other Providers: [facility] ; Negrito Gonzalez
[2022-02-22] MEDS: SODIUM CHLORIDE 0.9% 1000ML 1,000 ML IV SCH (11:18)
== END 2022-02-22 12:06 | disposition home health service (06) | DRG 556 ==
LOC: ED 14:38 → 3E 20:11

== ENCOUNTER 2022-06-05 11:28 | Inpatient (IN) ==
--- NOTE | 2022-06-03 12:41 | Anesthesiology Consultation ---
Date of Service June 03, 2022 Assessment & Plan (1) Encounter for pre-operative examination: Chart Review Chart Review: Acceptable Risk for Surgery and Patient NOT seen in Pre Admission Testing -COVID screening: Per PAT nursing assessment on 06/03/22. No known COVID-19 positive contacts or current COVID-19 related symptoms. Travel screen negative. Patient is NOT vaccinated for Covid. At surgeon discretion if preop Covid testing being done. I&D Left Knee 02/21/22= Done under [facility] with LMA #5. Atraumatic x 1 attempt History Surgery Operation Date: 06/05/22 14:00 Proposed Procedures p Open Incision and Drainage, Polyethyline Exchange Left Knee - Wellington Mena DO Height/Weight Height: 6 ft 2 in Weight: 97.522 kg Allergies Allergy/AdvReac Type Severity Reaction Status Date / Time No Known Allergies Allergy Verified 06/03/22 08:33 Medications Home Medications Medication Instructions Recorded Confirmed Last Taken sildenafil 100 mg tablet (Viagra) 100 mg PO DAILY PRN INTERCOURSE 06/05/19 06/03/22 12/26/21 ascorbic acid (vitamin C) 500 mg 500 mg PO QAM 12/24/21 06/03/22 01/22/22 tablet (Vitamin C) cholecalciferol (vitamin D3) 25 25 mcg PO QAM 12/24/21 06/03/22 01/22/22 mcg (1,000 unit) capsule (Vitamin D3) oregano oil 1,500 mg capsule 1,500 mg PO DAILY PRN Cold Symptoms 12/24/21 06/03/22 01/20/22 tangerine oil (bulk) ([place] 1 ea miscellaneous QAM 12/24/21 06/03/22 01/22/22 Oil, Natural) zinc 50 mg tablet 50 mg PO QAM 12/24/21 06/03/22 01/22/22 quercetin 500 mg capsule 500 mg PO QAM 02/20/22 06/03/22 Unknown Past Medical History Medical History Osteoarthritis Past Family History Family History Father Diabetes Colorectal cancer Mother Brain cancer Diabetes Other No family history of adverse response to anesthesia Past Surgical History Surgical History History of arthroscopy of left knee History of arthroscopy of right knee History of back surgery History of carpal tunnel release of both wrists History of surgery evacuation of hematoma of left knee 02/21/22 @ [facility] History of total right knee replacement Hx of colonoscopy Status post left knee replacement (~01/2022) 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 No issues noted per post-op anesthesia progress note. Social History Smoking Status: Never smoker Do You Dip or Chew Tobacco: No Hx Alcohol Use: No Hx Substance Use: No substance use type: does not use Lab Results Anesthesia Preop Results Results Anesthesia Widget: WBC 10.33 K/ul (4.8-10.8) 06/01/22 Hgb 10.2 g/dl (14.0-18.0) L 06/01/22 Hct 32.4 % (40.1-51.0) L 06/01/22 Plt 367 K/uL (130-400) 06/01/22 Na 135 mmol/L (136-145) L 06/01/22 K 3.8 mmol/L (3.5-5.1) 06/01/22 Cl 100 mmol/L (98-107) 06/01/22 CO2 28 mmol/L (21-32) 06/01/22 BUN 18 mg/dl (6-23) 06/01/22 Creat 0.79 mg/dl (0.6-1.4) 06/01/22 Glucose Level 84 mg/dl (70-99(Fasting)) 06/01/22 PT 11.2 Seconds (9.0-12.0) 06/01/22 PTT 33.0 Seconds (21.0-31.0) H 06/01/22 INR 1.1 (0.9-1.1) 06/01/22 Blood Type A Positive 06/01/22 Antibody Screen NEGATIVE 06/01/22 Testing Laboratory Results Chronic anemia- stable since 02/2022. Surgeon's office informed of anemia- will leave to surgeon's discretion on how to proceed Electrocardiogram Date: 02/20/22 Sinus tachycardia at 104bpm Left anterior fascicular block When compared to EKG from December 29, 2021- no significant change was found per cardio Chest X-Ray Date: 12/29/21 FINDINGS: No lines and tubes are seen. The aorta is tortuous. The remainder of the cardiomediastinal silhouette is unremarkable. The lungs are clear. No evidence of pleural effusion or pneumothorax. Right shoulder total arthroplasty is partially visualized. IMPRESSION: No acute chest disease.
[~2022-06-05 11:28] MED LIST: ACETAMINOPHEN 500 MG TAB PO SCH; FAMOTIDINE 20 MG TAB PO SCH; GABAPENTIN 300 MG CAP PO SCH; Ketorolac (*for OR use only*) 30 MG, dexAMETHasone 4 MG, KETAMINE HCL (**OR use only) 1... INFIL SCH; LR 500ML BOLUS, THEN 15ML/HR IV SCH; LR 60ML/HR IV SCH; TRANEXAMIC ACID 1,000 MG **IV Intra-op IV SCH; TRANEXAMIC ACID 1,000 MG **IV Pre-op IV SCH; ceFAZolin 2000MG 2,000 MG/15 ML SYR IV SCH; dexAMETHasone 4 MG TAB PO SCH
--- NOTE | 2022-06-05 13:08 | History & Physical Bridge Note ---
Date of Service June 05, 2022 History & Physical Bridge Note I have examined the patient, reviewed the History & Physical and in the interval since the performance of the History & Physical I have noted the following changes of clinical significance: no changes noted
[2022-06-05] MEDS ORDERED: LIDOCAINE 2% 20 MG/ML 5 ML SYR IV ONE (13:16)
[2022-06-05] MEDS ORDERED: ONDANSETRON INJ 2 MG/ML 2 ML VIAL ONE (13:16)
[2022-06-05] MEDS ORDERED: PROPOFOL IV EMULSION 10 MG/ML 20 ML VIAL IV ONE (13:16)
[2022-06-05] MEDS ORDERED: fentaNYL citrate 100 MCG/2 ML VIAL ONE ×3 (13:16→15:05)
[2022-06-05] MEDS ORDERED: MIDAZOLAM HCL 1 MG/ML 2ML VIAL ONE (13:16)
[2022-06-05] MEDS ORDERED: DAKIN'S SOLN 0.25% HALF STRENGTH 473ML BTL EXT ONE (13:50)
[2022-06-05] MEDS ORDERED: ONDANSETRON INJ 2 MG/ML 2 ML VIAL IV PRN ×2 (13:57→18:42)
[2022-06-05] MEDS ORDERED: ePHEDrine sulfate 50 MG/ML AMP IV PRN (13:57)
[2022-06-05] MEDS ORDERED: ATROPINE SULFATE 0.1 MG/ML 10ML SYR IV PRN (13:57)
[2022-06-05] MEDS ORDERED: DEXAMETHASONE SOD INJ 4 MG/ML VIAL ONE (14:35)
--- NOTE | 2022-06-05 16:10 | Operative Report ---
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 He underwent multiple aspirations and injections in our office. He finally elected to proceed with a left total knee arthroplasty. In January 2022 he underwent a left knee replacement. Postoperatively the knee fell back up with a hematoma. After about 3 to 4 weeks he began to have some wound breakdown's was taken back to the operating room and underwent a evacuation of the hematoma. The knee joint itself was aspirated. The joint fluid looked okay. There was really no signs of infection throughout the procedure. At 3 days the knee showed no growth. He was improving. I followed him up in the office. It was not until 2 weeks after the cultures did something grow positive for staph aureus . For the first few months he said he continued to improve with his knee. His CRP was starting to return to normal. Then over the past 3 to 4 weeks he has been more painful and swollen with his left knee. Most of his pain and swelling appear to be on the medial aspect where there is been a hematoma. Repeat sed rate and CRP were elevated. He elected to proceed with an open I&D and probably exchange of the left knee. Description of Procedure On June 05, [address] [facility] for the above procedure. He was seen in the preoperative holding area and the operative extremity was identified and signed. He was taken back the operating room and laid on the table in supine position. She was put under general anesthesia. The left knee was prepped and draped in sterile fashion. A timeout was done. The patient and the operative extremity was properly identified. The previous midline incision was opened back up. Dissection was taken down to the extensor mechanism. After dissecting a little bit medially there was a large infected hematoma along the medial aspect. This was cultured and evacuated. An arthrotomy was then made down to the knee joint. The tissue was very inflamed and thickened. There was actually only a trace amount of fluid within the knee joint. This was assumed to be infected and cultured. Significant time was then spent doing a debridement of the medial and lateral gutters. The thickened tissue was all excised. The polyethylene component was then removed. Further debridement was under taken to remove any inflamed or infected appearing tissue. The knee was then irrigated with some normal saline solution. A 3-minute Dakin's solution lavage was then done. The knee was then scrubbed vigorously with a Betadine scrub brush. 3 L of normal saline solution were then used to lavage the knees with pulse lavage. A 3-minute Betadine lavage was then done. The knee was then scrubbed vigorously with a Betadine scrub brush. 3 L of normal saline solution were used to lavage the knee with pulse lavage. Any additional inflamed tissue was then debrided. The tourniquet was deflated. Significant time was spent with an aqua Lesvia to ensure there was no further bleeding around the wound. Once hemostasis was controlled drapes were changed, new Bovie tips, suction tips, and pulse lavage tips were applied. Everyone in the surgical field changed her gloves and a sterile table was brought into the field. I decided to downsize the polyethylene component from a size 12 to a size 10. The final size 10 CPS implant was then snapped into place. The knee was brought through full range of motion felt to be stable. A drain was placed in the medial sided hematoma and a drain was placed in the deep knee joint. The extensor mechanism was closed with #1 Vicryl suture. Skin was closed with 2-0 Vicryl, 3 oh VueLock suture, and rupert. He was then placed in a soft compressive dressing. He was then extubated and transferred to a [facility]. He was taken to the postanesthesia care unit in stable condition. He tolerated procedure well. I attest to the content of the Intraoperative Record and any orders documented therein. Any exceptions are noted below.
[2022-06-05] MEDS: fentaNYL citrate 100 MCG/2 ML VIAL IV PRN ×4 (16:32→16:47)
[2022-06-05] MEDS ORDERED: HYDROmorphone INJ 1 MG/ML SYRINGE ONE ×3 (16:40→17:14)
[2022-06-05] MEDS: HYDROmorphone INJ 2 MG/ML SYR/VIAL IV PRN ×6 (16:48→17:18)
--- NOTE | 2022-06-05 16:55 | Anesthesiology Progress Note ---
Date of Service June 05, 2022 Anesthesia Post Procedure Vital Signs Vital Signs: Temp Pulse Resp BP Pulse Ox O2 Del Method O2 Flow Rate 06/05/22 16:45 94 H 18 136/88 96 Room Air 06/05/22 16:35 96 H 18 127/83 99 Oxymask 5 06/05/22 16:26 36.1 C L 101 H 18 135/89 98 Oxymask 5 06/05/22 11:56 37.1 C 110 H 20 127/86 98 Room Air Transfer of Care Handoff Completed per policy Notes Mental Status: alert / awake / arousable Patient Amnestic to Procedure: Yes Nausea / Vomiting: adequately controlled Pain: adequately controlled Airway Patency, RR, SpO2: stable & adequate BP & HR: stable & adequate Hydration State: stable & adequate Anesthetic Complications: no major complications apparent and Pt Satisfied with anesthetic care
[2022-06-05] MEDS ORDERED: HYDROmorphone INJ 0.5 MG/0.5 ML SYR IV PRN (18:42)
[2022-06-05] MEDS ORDERED: SODIUM CHLORIDE 0.9% 1000ML 1,000 ML IV SCH (18:42)
[2022-06-05] MEDS ORDERED: MAGNESIUM HYDROXIDE SUSP 30 ML UDC PO PRN (18:42)
[2022-06-05] MEDS ORDERED: bisacodyL 10 MG SUPP PR PRN (18:42)
[2022-06-05] MEDS ORDERED: METOCLOPRAMIDE HCL INJ 5 MG/ML 2 ML VIAL IV PRN (18:42)
[2022-06-05] MEDS ORDERED: VANCOMYCIN CONSULT ACTIVE PRN (18:42)
[2022-06-05] MEDS ORDERED: NALOXONE HCL 0.4 MG/1 ML VIAL/CARP IV PRN (18:42)
[2022-06-05] MEDS ORDERED: VANCOMYCIN HCL 2,000 MG in SODIUM CHLORIDE 0.9% 500 ML IV STA (18:54)
--- NOTE | 2022-06-05 19:14 | Pharmacy Report ---
Pharmacy PK ABX Note - Date of Service June 05, 2022 - Assessment and Plan Assessment 66 year old M receiving Vancomycin for treatment of possible prosthetic joint infection. * Afebrile. Baseline labs from 06/01/22 show no leukocytosis and SCr of 0.79 mg/dL. * L knee culture from OR pending. Plan Vancomycin * Loading dose: 2000 mg IV x 1 * Maintenance dose: 1250 mg IV every 12 hours * Regimen is predicted to achieve target AUC/JULISA of 400-600 mg/L.hr * Random level ordered for: 06/07/22 Pharmacy will continue to follow and will adjust dose/frequency as necessary. Thank you. Pharmacy has transitioned to AUC monitoring for vancomycin. AUC/JULISA is the preferred PK/PD target and is associated with decreased risk of nephrotoxicity compared to traditional trough targets.
[2022-06-05] MEDS: KETOROLAC TROMETHAMINE 15 MG/ML VIAL IV SCH (20:00)
[2022-06-05] MEDS: SENNA 8.6 MG TAB PO SCH (20:01)
[2022-06-05] MEDS: ASPIRIN 81 MG ECTAB PO SCH (20:12)
[2022-06-05] MEDS: DOCUSATE SODIUM 100 MG CAP PO SCH (20:13)
--- NOTE | 2022-06-05 20:54 | Consultation ---
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 Patient initially had his arthroplasty performed January 2022. He had evacuation of infected hematoma, debridement, washout and poly-exchange performed today 06/05/[address] Mena. Intraoperative cultures sent and PENDING. Patient is presently on Vancomycin. He is afebrile, HD stable, NAD. Pain is well controlled. -Recommend ongoing pain control, anti-emetics and bowel regimen per primary team -Continue Vancomycin for now -Will defer to the expertise of our Infectious Disease colleagues to determine best discharge antibiotic agents and duration as well as continued followup, labs, etc. ID Consultation has already been placed by the primary team. History of Present Illness Reason for Consultation: Medical management Attending Physician: Wellington Mena, History of Present Illness Rolan Feliciano is a pleasant 66yo male with history of osteoarthritis presenting with infected hematoma of the left knee with periprosthetic joint infection. Patient with longstanding history of OA with knee effusions requiring multiple aspirations and injections. He had a LEFT TKA performed on 01/26/2022. He did have a post-operative hematoma with wound breakdown and returned to the OR on 02/21/23 for evacuation. The joint was aspirated at that time - joint fluid appeared clear and was initially culture NEGATIVE. Two weeks after the aspiration the joint fluid from 02/21/22 grew S. aureus and E. Faecalis. He was treated with Doxycycline and Bactrim as well as steroids. Patient had increased CRP levels - on 06/01/22 CRP=11.23 Over the last 3-4 weeks he has been having increased pain and swelling. He went to the OR on 06/05/[address] Mena for I&D and poly-exchange under general anesthesia. He was found to have a large infected hematoma which was removed. The surrounding tissue was very thickened and inflamed. The joint was aspirated and fluid sent for culture. Area was aggressively debrided and irrigated. Polyethylene component was changed from size 12 to 10. Surgery was well tolerated with no immediate complications - EBL 50mL. Patient was returned to the floor for ongoing care. Patient had some post-operative pain and nausea. Is overall feeling better now. He was able to eat a little bit of dinner. No BM or urination yet. Patient is presently on Vancomycin. Deep left knee culture from 06/05/22 with MANY WBCs no organisms. Intraoperative cultures PENDING. Allergies Allergy/AdvReac Type Severity Reaction Status Date / Time No Known Allergies Allergy Verified 06/05/22 12:06 Home Medications Medication Instructions Recorded Confirmed Type sildenafil 100 mg tablet (Viagra) 100 mg PO DAILY PRN INTERCOURSE 06/05/19 06/05/22 History ascorbic acid (vitamin C) 500 mg 500 mg PO QAM 12/24/21 06/05/22 History tablet (Vitamin C) cholecalciferol (vitamin D3) 25 25 mcg PO QAM 12/24/21 06/05/22 History mcg (1,000 unit) capsule (Vitamin D3) oregano oil 1,500 mg capsule 1,500 mg PO DAILY PRN Cold Symptoms 12/24/21 06/05/22 History tangerine oil (bulk) ([place] 1 ea miscellaneous QAM 12/24/21 06/05/22 History Oil, Natural) zinc 50 mg tablet 50 mg PO QAM 12/24/21 06/05/22 History quercetin 500 mg capsule 500 mg PO QAM 02/20/22 06/05/22 History Patient History Medical History Osteoarthritis Surgical History History of arthroscopy of left knee History of arthroscopy of right knee History of back surgery History of carpal tunnel release of both wrists History of surgery evacuation of hematoma of left knee 02/21/22 @ [facility] History of total right knee replacement Hx of colonoscopy Status post left knee replacement (~01/2022) 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 No issues noted per post-op anesthesia progress note. 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 Beliefs That Will Affect Care: None marital status: Current Living Situation: Spouse current occupational status: employed How many Children do You have: 1 Other Information That Helps Us Care for You: No Feels Safe at Home: Yes Safety Concerns: Feels Safe At This Time Physical Activity Frequency: 3-4 Times per Week Assistive Devices: Cane, Denture - Upper and Denture - Lower Assistive Devices Comment: full upper/lower dentures Review of Systems Review of Systems: All systems reviewed & are unremarkable except as noted in HPI & below Physical Exam Physical Exam: General: patient resting comfortably, NAD, non-toxic in appearance, AA&O x 4 Skin: warm, dry, intact, no rashes or lesions HEENT: NC/AT, PERRL, EOMI, anicteric sclera, conjunctiva without injection, external ear normal to inspection and nontender, nares patent, moist mucus membranes, dentition intact, no oropharyngeal lesions, neck supple, trachea midline, no LAD, no thyromegaly, no JVD Heart: +S1/S2, regular, no m/r/g Lungs: equal air entry bilaterally, no rales/rhonchi/wheezes Abd: +BS, soft, NT/ND, no masses/organomegaly/ascites Ext: warm, 2+ pulses in UE/LE bilaterally, no clubbing/cyanosis or edema, left knee dressing in place, c/d/i, NV intact Neuro: nonfocal, patient AA&O x 4, speech intact, no facial droop, moving all extremities on command with equal strength 5/5 Results & Data ([facility]) Vital Signs (Past 12 Hours) Vital Signs Temp Pulse Resp BP Pulse Ox O2 Del Method O2 Flow Rate 06/05/22 19:44 36.4 C L 86 18 125/81 100 Nasal Cannula 1 06/05/22 18:45 36.3 C L 88 18 130/80 98 Nasal Cannula 1 06/05/22 18:10 91 H 16 119/78 98 Nasal Cannula 2 06/05/22 17:55 94 H 16 120/78 98 Nasal Cannula 2 06/05/22 17:45 90 16 108/75 99 Nasal Cannula 2 06/05/22 17:35 36.4 C L 89 16 123/80 99 Nasal Cannula 2 06/05/22 17:25 36.4 C L 94 H 16 117/76 99 Nasal Cannula 2 06/05/22 17:15 90 16 119/66 99 Nasal Cannula 2 06/05/22 17:05 92 H 17 128/77 94 Room Air 06/05/22 16:55 96 H 17 127/83 95 Room Air 06/05/22 16:45 94 H 18 136/88 96 Room Air 06/05/22 16:35 96 H 18 127/83 99 Oxymask 5 06/05/22 16:26 36.1 C L 101 H 18 135/89 98 Oxymask 5 06/05/22 11:56 37.1 C 110 H 20 127/86 98 Room Air Laboratory Results Laboratory Results SARS-CoV-2, RNA, NAAT NEGATIVE (NEGATIVE) 06/05/22 11:00 PG Care Time/CCT Total # of Minutes Spent Total Time Spent with Patient: Total time spent is greater than 50% in coordination of care (as documented) at patient's floor/unit and/or counseling patient: Coding Level of Care Code 00085 INT INP/OBS CARE MIN Diagnoses Infection of total knee replacement T84.59XA; Z96.659
[2022-06-06] MEDS: KETOROLAC TROMETHAMINE 15 MG/ML VIAL IV SCH ×2 (00:58→06:30)
[2022-06-06] MEDS ORDERED: VANCOMYCIN HCL 1,250 MG in SODIUM CHLORIDE 0.9% 250 ML IV SCH (06:00)
[2022-06-06] MEDS: DOCUSATE SODIUM 100 MG CAP PO SCH ×2 (07:11→19:50)
[2022-06-06] MEDS: ASPIRIN 81 MG ECTAB PO SCH ×2 (07:12→19:50)
[2022-06-06] MEDS: MULTIVITAMIN TAB PO SCH (07:12)
--- NOTE | 2022-06-06 07:33 | Orthopedic Progress Note ---
Date of Service June 06, 2022 Assessment & Plan (1) Infection of total knee replacement: His current cultures are still pending. Overall he is doing fairly well. He is on vancomycin. He is being followed by the hospitalist. We will consult infectious disease as well. He understands he will likely be in the hospital for 3 to 4 days and sent home with PICC line antibiotics. He can be seen by physical therapy for ambulation and range of motion exercises. I will probably leave the drains in for 2 to 3 days depending on the output. Eric Gongora was seen and examined at bedside this morning. Overall is doing fairly well. Is not having too much pain in the left knee. He was able to get some sleep last night. Has no complaints.. Review of Systems All systems reviewed & are unremarkable except as noted in HPI & below. Physical Exam On physical examination of the left knee, the dressing is clean and dry. His Hemovac drains are to suction. He has active dorsiflexion plantarflexion of his left ankle.. Results & Data Results & Data Laboratory Results . Diagnostic Findings . PG Care Time/CCT Total # of Minutes Spent Total Time Spent with Patient: Total time spent is greater than 50% in coordination of care (as documented) at patient's floor/unit and/or counseling patient: Coding Level of Care Code 53463 Post Operative Follow-Up Diagnoses Infection of total knee replacement T84.59XA; Z96.659
--- NOTE | 2022-06-06 07:42 | Hospitalist Progress Note ---
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 Patient initially had his arthroplasty performed January 2022. POD#1 s/p Open Incision and Drainage, Polyethyline Exchange Left Knee(Left) - Wellington Mena DO. EBL 50cc. Intraoperative cultures pending Per OR report, appears large infected hematoma along medial aspect of joint Decadron 8mg PO ordered by primary service Continue Vancomycin for now -Recommend ongoing pain control, anti-emetics and bowel regimen per primary team added miralax daily to help with bowel movements hgb dropped from 10.2 to 8.4 post-op, acute blood loss anemia from infected hematoma/blood loss w/ surgery/hemovac drainage, also suspect some aspect of dilution from IVF Will defer to the expertise of our Infectious Disease colleagues to determine best discharge antibiotic agents and duration as well as continued followup, labs, etc. ID Consultation has already been placed by the primary team -- patient aware likely inpatient until Wednesday, possible d/c Wednesday depending eval PT/OT consulted CM to follow Monitor labs on repeat in AM (2) Anemia: Plan: Pre-op h/h 10.2/32.4, microcytic with MCV 78.6 Appears had been normal in February Hgb 8.4 -- acute blood loss anemia as above Cautious use of NSAIDs-- primary service has ordered ketorolac, will discontinue given bleeding -- utilize oxycodone/other agents Will check iron studies (b12/folate for completeness given normal prior) Monitor CBC on AM labs Plan continued inpatient stay Hospitalist service will follow along Admission and Anticipated Discharge Date Admission Date: June 05, 2022 Supervising Physician Co-Signing Physician Notes The patient was not seen by me. Chart reviewed. Case discussed with Paola Solomon, physicians hotel assistant general manager. Agree with assessment and plan Subjective eval this morning, just walked the halls with surgery pain controlled hemovac with blood draining but clearing in tubing. Denies any blood in urine or stool. denies any lightheadedness/shortness of breath or chest pain. NO issues with ambulation. Discussed checking iron labs/replacement if needed. No fever/chills, abdominal pain, nausea or vomiting. He is aware will be inpatient until Wednesday or Wednesday waiting for ID consultation and IV abx arrangement if necessary. Questions/concerns addressed at this time. Review of Systems Review of Systems: All systems reviewed & are unremarkable except as noted in HPI & below Physical Exam Physical Exam: General: WD/WN male sitting up in chair, just getting done working with therapy, NAD, general pallor noted HEENT: normocephalic, atraumatic, mmm, trachea midline without deviation Resp: CTA, no w/c, 99% on RA CV: RRR, no m/r/g, no calf tenderness GI: +BS, +distention, nontender, no guarding/rebound MSK/Neuro: follows commands, no focal deficit/slurred speech dressing/CARI wrap to LLE, c/d/i, hemovac w/ 2 drains, bloody drainage. NVI, strength slightly less w/ flexion/extension 4/5 on left compared to 5/5 on the right Skin: warm, perfused Results & Data Results & Data ([facility]) Vital Signs (Past 12 Hours) Vital Signs Temp Pulse Resp BP Pulse Ox O2 Del Method O2 Flow Rate 06/06/22 07:13 36.5 C 82 18 116/73 99 Room Air 06/06/22 03:00 36.5 C 73 18 125/75 99 Room Air 06/05/22 23:00 36.5 C 99 H 18 103/66 97 Room Air 06/05/22 19:44 36.4 C L 86 18 125/81 100 Nasal Cannula 1 Laboratory Results 06/06/22 06/06/22 06/06/22 Range/Units 08:02 08:02 08:02 WBC (4.8-10.8) K/ul RBC (4.70-6.10) M/uL Hgb (14.0-18.0) g/dl Hct (42.0-52.0) % MCV (80.0-100.0) fL MCH (25.0-34.0) pg MCHC (32.0-36.0) g/dL RDW Std Deviation (36.4-46.3) fL RDW Coeff of Moises (11.5-14.5) % Plt Count (130-400) K/uL MPV (9.4-12.4) fL ESR Sodium Potassium Chloride Carbon Dioxide Anion Gap BUN Creatinine Est Cr Clr Drug Dosing Est GFR ( Amer) Est GFR (Non-Af Amer) BUN/Creatinine Ratio Glucose Calcium Iron Pending TIBC Pending Unsaturated IBC Pending Transferrin % Sat Pending Ferritin C-Reactive Protein Vitamin B12 Pending Folate Pending TSH Pending SARS-CoV-2, RNA, NAAT (NEGATIVE) 06/06/22 06/06/22 06/06/22 Range/Units 08:02 08:02 08:02 WBC (4.8-10.8) K/ul RBC (4.70-6.10) M/uL Hgb (14.0-18.0) g/dl Hct (42.0-52.0) % MCV (80.0-100.0) fL MCH (25.0-34.0) pg MCHC (32.0-36.0) g/dL RDW Std Deviation (36.4-46.3) fL RDW Coeff of Moises (11.5-14.5) % Plt Count (130-400) K/uL MPV (9.4-12.4) fL ESR Pending Sodium Pending Potassium Pending Chloride Pending Carbon Dioxide Pending Anion Gap Pending BUN Pending Creatinine Pending Est Cr Clr Drug Dosing Pending Est GFR ( Amer) Pending Est GFR (Non-Af Amer) Pending BUN/Creatinine Ratio Pending Glucose Pending Calcium Pending Iron TIBC Unsaturated IBC Transferrin % Sat Ferritin Pending C-Reactive Protein Pending Vitamin B12 Folate TSH SARS-CoV-2, RNA, NAAT (NEGATIVE) 06/06/22 06/05/22 Range/Units 08:02 11:00 WBC 10.72 (4.8-10.8) K/ul RBC 3.42 L (4.70-6.10) M/uL Hgb 8.4 L (14.0-18.0) g/dl Hct 25.6 L (42.0-52.0) % MCV 74.9 L (80.0-100.0) fL MCH 24.6 L (25.0-34.0) pg MCHC 32.8 (32.0-36.0) g/dL RDW Std Deviation 41.8 (36.4-46.3) fL RDW Coeff of Moises 15.3 H (11.5-14.5) % Plt Count 328 (130-400) K/uL MPV 8.6 L (9.4-12.4) fL ESR Sodium Potassium Chloride Carbon Dioxide Anion Gap BUN Creatinine Est Cr Clr Drug Dosing Est GFR ( Amer) Est GFR (Non-Af Amer) BUN/Creatinine Ratio Glucose Calcium Iron TIBC Unsaturated IBC Transferrin % Sat Ferritin C-Reactive Protein Vitamin B12 Folate TSH SARS-CoV-2, RNA, NAAT NEGATIVE (NEGATIVE) PG Care Time/CCT Total # of Minutes Spent Total Time Spent with Patient: Total time spent is greater than 50% in coordination of care (as documented) at patient's floor/unit and/or counseling patient: Coding Level of Care Code 93153 SUB INP/OBS CARE 235MIN Diagnoses Infection of total knee replacement T84.59XA; Z96.659 Anemia D64.9
[2022-06-06] MEDS ORDERED: dexAMETHasone 4 MG TAB PO SCH (08:00)
[2022-06-06 08:21] LABS: Hematocrit (blood only) 25.6 % (42.0-52.0); Hemoglobin 8.4 g/dl (14.0-18.0); Mean Corpuscular Hemoglobin 24.6 pg (25.0-34.0); Mean Corpuscular Hgb Conc 32.8 g/dL (32.0-36.0); Mean Corpuscular Volume 74.9 fL (80.0-100.0); Mean Platelet Volume 8.6 fL (9.4-12.4); Platelet Count 328 K/uL (130-400); RDW Coefficient of Variation 15.3 % (11.5-14.5); RDW Standard Deviation 41.8 fL (36.4-46.3); Red Blood Count 3.42 M/uL (4.70-6.10); White Blood Count 10.72 K/ul (4.8-10.8)
[2022-06-06 08:41] LABS: Calcium 8.4 mg/dl (8.5-10.1)
[2022-06-06 08:46] LABS: Creatinine Clr Calc Pharmacy 143.5 ml/min; Est GFR (African American) 118.1 ml/min; Est GFR (Non-African American) 101.9 ml/min
[2022-06-06 09:02] LABS: Iron 21 mcg/dl (35-175); Total Iron Binding Cap Calc 161 mcg/dl (250-450); Transferrin (FE) Percent Satur 13 % (20-50); Unsaturated Iron Binding Cap 140 mcg/dl (155-355)
[2022-06-06 09:05] LABS: C Reactive Protein 5.77 mg/dl (0-0.5)
[2022-06-06 09:18] LABS: Ferritin 526.7 ng/ml (8-388)
[2022-06-06] MEDS: PANTOprazole 40 MG TAB PO SCH (11:01)
[2022-06-06] MEDS: POLYETHYLENE (MIRALAX) 17 GM PACK PO SCH (11:01)
[2022-06-06 17:22] LABS: Hematocrit (blood only) 26.1 % (42.0-52.0); Hemoglobin 8.5 g/dl (14.0-18.0); Mean Corpuscular Hemoglobin 25.1 pg (25.0-34.0); Mean Corpuscular Hgb Conc 32.6 g/dL (32.0-36.0); Mean Platelet Volume 8.3 fL (9.4-12.4); Platelet Count 329 K/uL (130-400); RDW Coefficient of Variation 15.5 % (11.5-14.5); RDW Standard Deviation 43.3 fL (36.4-46.3); Red Blood Count 3.39 M/uL (4.70-6.10); White Blood Count 13.83 K/ul (4.8-10.8)
[2022-06-06] MEDS: VANCOMYCIN HCL 1,250 MG in SODIUM CHLORIDE 0.9% 250 ML IV SCH (17:43)
[2022-06-06] MEDS: SENNA 8.6 MG TAB PO SCH (19:49)
[2022-06-06] MEDS: oxyCODONE HCL IR 5 MG TAB (IMMEDIATE RELEASE) PO PRN (23:22)
[2022-06-07] MEDS ORDERED: VANCOMYCIN LEVEL ONE (05:30)
[2022-06-07 06:26] LABS: Hematocrit (blood only) 25.5 % (42.0-52.0); Hemoglobin 8.1 g/dl (14.0-18.0); Mean Corpuscular Hemoglobin 24.7 pg (25.0-34.0); Mean Corpuscular Hgb Conc 31.8 g/dL (32.0-36.0); Mean Corpuscular Volume 77.7 fL (80.0-100.0); Mean Platelet Volume 8.6 fL (9.4-12.4); Platelet Count 307 K/uL (130-400); RDW Coefficient of Variation 15.5 % (11.5-14.5); RDW Standard Deviation 43.8 fL (36.4-46.3); Red Blood Count 3.28 M/uL (4.70-6.10); White Blood Count 9.89 K/ul (4.8-10.8)
[2022-06-07] MEDS: VANCOMYCIN HCL 1,250 MG in SODIUM CHLORIDE 0.9% 250 ML IV SCH ×3 (06:26→19:23)
[2022-06-07 06:56] LABS: Calcium 8.5 mg/dl (8.5-10.1); Magnesium 1.7 mg/dl (1.7-2.4); Potassium 3.9 mmol/L (3.5-5.1)
[2022-06-07 07:02] LABS: BUN Creatinine Ratio 25.8 (10-20); Creatinine Clr Calc Pharmacy 143.5 ml/min; Est GFR (African American) 118.1 ml/min; Est GFR (Non-African American) 101.9 ml/min
[2022-06-07] MEDS: ASPIRIN 81 MG ECTAB PO SCH ×2 (07:55→19:31)
[2022-06-07] MEDS: POLYETHYLENE (MIRALAX) 17 GM PACK PO SCH (07:55)
[2022-06-07] MEDS: PANTOprazole 40 MG TAB PO SCH (07:55)
[2022-06-07] MEDS: DOCUSATE SODIUM 100 MG CAP PO SCH ×2 (07:55→19:31)
[2022-06-07] MEDS: MULTIVITAMIN TAB PO SCH (07:55)
--- NOTE | 2022-06-07 08:48 | Hospitalist Progress Note ---
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 Patient initially had his arthroplasty performed January 2022. POD#2 s/p Open Incision and Drainage, Polyethyline Exchange Left Knee(Left) - Welilngton Mena DO. EBL 50cc. Per OR report, appears large infected hematoma along medial aspect of joint Intraoperative cultures with staph species x 2 (resistant to clinda/erythro) Decadron 8mg PO ordered by primary service x1. WBC normalized on repeat Has been afebrile, WBC wnl CRP/ESR trending down Hgb 10.2--> 8.1, --acute blood loss from hematoma/JACKY output and dilutional from IVF as well. NO lightheadedness/cp/sob -- of note, if needing any blood he would want to receive from his son Iron panel checked given anemia/MCV <80 --> acute on chronic, TIBC not elevated but iron/t sat LOW --Avoiding IV venofer given current infection, but moving bowels and started PO iron daily. Continue Vancomycin for now (trough level low this morning, pharmacy managing/adjustments as needed) Discussed with pharmacy as they asked me about de-escalating to Ancef given cx, however discussed not finalized Official ID consult for tomorrow -- will need IV access and home abx arranged -- primary service to arrange, would be happy to assist if needed Continue bowel regimen, pain control (+BM overnight) PT/OT consulted -- panning for home health, with abx as above. CM to follow Monitor labs in AM (2) Anemia: Plan: Pre-op h/h 10.2/32.4, microcytic with MCV 78.6 Appears had been normal in February -- states has had c-scope in past, normal Hgb 8.4 -- acute blood loss anemia as above, drop to 8.1 but asymptomatic Cautious use of NSAIDs-- primary service ordered ketorolac, will discontinue given bleeding -- utilize oxycodone/other agents Iron studies w/ acute on chronic but started daily ferrous sulfate. would continue x 1 month B12/folate without deficiency Monitor CBC on repeat in AM or sooner if any symptoms Again, he would want blood transfusion from son if required Plan continued inpatient stay Hospitalist service will follow up with ID recommendations and cultures tomorrow but does not appear needs to be seen formally. Messaged Dr Mena recommendations and would be happy to help arrange IV abx if needed with case management if needing assistance. Otherwise hospitalist service will not officially see patient tomorrow unless needed by primary service. Please call with any questions/concerns. Admission and Anticipated Discharge Date Admission Date: June 05, 2022 Supervising Physician Co-Signing Physician Notes The patient was not seen by me. Chart reviewed. Case discussed with PADMINI Severino. Agree with assessment and plan Subjective eval this morning, doing well. in halls walking, got oxycodone for pain. discussion about dc toradol and would avoid NSAIDs. Hgb stable, no CP/SOB/lightheadedness or dizziness. Discussed cx w/ staph aureus however continue current abx until finalized given prior enterococcus. Dr Mena to come around for dressing change today, not yet been in to see patient. No fevers/chills. Eating/drinking without issue and moved his bowels overnight. Discussed starting oral iron and to continue bowel regimen to prevent constipation. Review of Systems Review of Systems: All systems reviewed & are unremarkable except as noted in HPI & below Physical Exam Physical Exam: General: WD/WN male resting in bed, NAD HEENT: normocephalic, atraumatic, mmm, trachea midline without deviation Resp: CTA, no w/c, 100% on RA CV: RRR, no m/r/g, no calf tenderness GI: +BS, less distention, nontender, no guarding/rebound MSK/Neuro: follows commands, no focal deficit/slurred speech dressing/CARI wrap to LLE, c/d/i, hemovac w/ 2 drains, bloody drainage. NVI, s trength slightly less w/ flexion/extension 4/5 on left compared to 5/5 on the right Skin: warm, perfused Results & Data Results & Data ([facility]) Vital Signs (Past 12 Hours) Vital Signs Temp Pulse Resp BP Pulse Ox O2 Del Method 06/07/22 08:25 36.7 C 77 16 120/82 100 Room Air 06/06/22 23:02 36.7 C 89 18 116/72 98 Room Air Laboratory Results 06/07/22 06/07/22 06/07/22 Range/Units 06:09 06:09 06:09 WBC 9.89 (4.8-10.8) K/ul RBC 3.28 L (4.70-6.10) M/uL Hgb 8.1 L (14.0-18.0) g/dl Hct 25.5 L (42.0-52.0) % MCV 77.7 L (80.0-100.0) fL MCH 24.7 L (25.0-34.0) pg MCHC 31.8 L (32.0-36.0) g/dL RDW Std Deviation 43.8 (36.4-46.3) fL RDW Coeff of Moises 15.5 H (11.5-14.5) % Plt Count 307 (130-400) K/uL MPV 8.6 L (9.4-12.4) fL Sodium 137 (136-145) mmol/L Potassium 3.9 (3.5-5.1) mmol/L Chloride 106 (98-107) mmol/L Carbon Dioxide 27 (21-32) mmol/L Anion Gap 4 (3-11) BUN 16 (6-23) mg/dl Creatinine 0.62 (0.6-1.4) mg/dl Est Cr Clr Drug Dosing 143.5 ml/min Est GFR ( Amer) 118.1 ml/min Est GFR (Non-Af Amer) 101.9 ml/min BUN/Creatinine Ratio 25.8 H (10-20) Glucose 79 (70-99(Fasting)) mg/dl Calcium 8.5 (8.5-10.1) mg/dl Magnesium 1.7 (1.7-2.4) mg/dl Random Vancomycin 6.5 L (10-20) mcg/ml 06/06/22 Range/Units 17:12 WBC 13.83 H (4.8-10.8) K/ul RBC 3.39 L (4.70-6.10) M/uL Hgb 8.5 L (14.0-18.0) g/dl Hct 26.1 L (42.0-52.0) % MCV 77.0 L (80.0-100.0) fL MCH 25.1 (25.0-34.0) pg MCHC 32.6 (32.0-36.0) g/dL RDW Std Deviation 43.3 (36.4-46.3) fL RDW Coeff of Moises 15.5 H (11.5-14.5) % Plt Count 329 (130-400) K/uL MPV 8.3 L (9.4-12.4) fL Sodium (136-145) mmol/L Potassium (3.5-5.1) mmol/L Chloride (98-107) mmol/L Carbon Dioxide (21-32) mmol/L Anion Gap (3-11) BUN (6-23) mg/dl Creatinine (0.6-1.4) mg/dl Est Cr Clr Drug Dosing ml/min Est GFR ( Amer) ml/min Est GFR (Non-Af Amer) ml/min BUN/Creatinine Ratio (10-20) Glucose (70-99(Fasting)) mg/dl Calcium (8.5-10.1) mg/dl Magnesium (1.7-2.4) mg/dl Random Vancomycin (10-20) mcg/ml PG Care Time/CCT Total # of Minutes Spent Total Time Spent with Patient: Total time spent is greater than 50% in coordination of care (as documented) at patient's floor/unit and/or counseling patient: Coding Level of Care Code 43767 SUB INP/OBS CARE 2/35MIN Diagnoses Infection of total knee replacement T84.59XA; Z96.659 Anemia D64.9
[2022-06-07] MEDS: oxyCODONE HCL IR 5 MG TAB (IMMEDIATE RELEASE) PO PRN (09:58)
--- NOTE | 2022-06-07 10:07 | Pharmacy Report ---
Pharmacy PK ABX Note - Date of Service June 07, 2022 - Assessment and Plan Assessment 66 year old M receiving Vancomycin for treatment of possible prosthetic joint infection. * Afebrile. Renal fxn stable. * L knee culture from OR grew MSSA. Recommended de-escalation to Ancef but provider would like to continue Vancomycin until cultures are final given Enterococcus growing in knee cx from February 2022. Plan Vancomycin * Current regimen: 1250 mg IV every 12 hours * Random level obtained 06/07/22 resulted as 6.5 mcg/mL. This is subtherapeutic. * Change to 1250 mg IV every 8 hours. Predicted AUC at steady state: 535 mg/L.hr * Repeat trough level ordered for: 06/08/22 Pharmacy will continue to follow and will adjust dose/frequency as necessary. Thank you. Pharmacy has transitioned to AUC monitoring for vancomycin. AUC/JULISA is the preferred PK/PD target and is associated with decreased risk of nephrotoxicity compared to traditional trough targets.
[2022-06-07] MEDS: FERROUS SULFATE 325 MG TAB PO SCH (12:46)
[2022-06-07] MEDS: SENNA 8.6 MG TAB PO SCH (19:31)
[2022-06-08] MEDS: VANCOMYCIN HCL 1,250 MG in SODIUM CHLORIDE 0.9% 250 ML IV SCH ×3 (03:09→20:34)
[2022-06-08 06:49] LABS: Hematocrit (blood only) 27.5 % (42.0-52.0); Hemoglobin 8.8 g/dl (14.0-18.0); Mean Corpuscular Hemoglobin 24.7 pg (25.0-34.0); Mean Corpuscular Volume 77.2 fL (80.0-100.0); Mean Platelet Volume 8.5 fL (9.4-12.4); Platelet Count 340 K/uL (130-400); RDW Coefficient of Variation 15.7 % (11.5-14.5); RDW Standard Deviation 43.8 fL (36.4-46.3); Red Blood Count 3.56 M/uL (4.70-6.10); White Blood Count 10.06 K/ul (4.8-10.8)
[2022-06-08 07:18] LABS: Calcium 8.7 mg/dl (8.5-10.1); Potassium 3.9 mmol/L (3.5-5.1)
[2022-06-08 07:23] LABS: BUN Creatinine Ratio 20.8 (10-20); Creatinine Clr Calc Pharmacy 115.6 ml/min; Est GFR (African American) 108.1 ml/min; Est GFR (Non-African American) 93.2 ml/min
[2022-06-08] MEDS: POLYETHYLENE (MIRALAX) 17 GM PACK PO SCH (08:12)
[2022-06-08] MEDS: FERROUS SULFATE 325 MG TAB PO SCH (08:23)
[2022-06-08] MEDS: PANTOprazole 40 MG TAB PO SCH (08:23)
[2022-06-08] MEDS: MULTIVITAMIN TAB PO SCH (08:23)
[2022-06-08] MEDS: DOCUSATE SODIUM 100 MG CAP PO SCH ×2 (08:23→20:28)
[2022-06-08] MEDS: ASPIRIN 81 MG ECTAB PO SCH ×2 (08:23→20:28)
--- NOTE | 2022-06-08 10:22 | Orthopedic Progress Note ---
Date of Service June 08, 2022 Assessment & Plan (1) Infection of total knee replacement: Initial cultures have grown back staph aureus. He is currently on vancomycin. Infectious disease has been consulted and we are awaiting their recommendations hopefully later today. He is on aspirin for DVT prophylaxis. He can be weightbearing as tolerated with physical therapy. A PICC line will be placed. We are planning for discharge to home tomorrow on infectious disease recommendation of antibiotics. Eric Gongora was seen and examined at bedside this morning. Overall he is doing fairly well. He is tolerating the antibiotics well. He is working well with physical therapy. He has no complaints.. Review of Systems All systems reviewed & are unremarkable except as noted in HPI & below. Physical Exam On physical examination of the left knee, drains were pulled and the dressing was removed. There was a little bit of serous drainage from the superior drain hole. Results & Data Results & Data Laboratory Results . Diagnostic Findings . PG Care Time/CCT Total # of Minutes Spent Total Time Spent with Patient: Total time spent is greater than 50% in coordination of care (as documented) at patient's floor/unit and/or counseling patient: Coding Level of Care Code 25962 Post Operative Follow-Up Diagnoses Infection of total knee replacement T84.59XA; Z96.659
--- NOTE | 2022-06-08 11:25 | Infectious Disease Consult ---
Date of Consultation June 08, 2022 Assessment & Plan (1) Infection of total knee replacement: (2) Status post left knee replacement: (3) Hematoma of left knee region: Plan 66 yo M with h/o long standing osteoarthritis of L knee ultimately undergoing L TKA 01/26/2022 c/b post operative hematoma with wound breakdown and returned to the OR on 02/21/23 for evacuation. The joint was aspirated at that time and ultimately grew MSSA and ampicillin sensitive E. faecalis. He was treated with Doxycycline and Bactrim. Patient admitted to [facility] on 06/05 and underwent I+D and polyexchange of L knee. ID consulted for prosthetic joint infection. Over past 1 month patient has had increased pain and swelling. He was followed by Orthopaedics as outpatient and given inc CRP/ESR , 06/01/22 CRP was 11.23 admitted to [facility] on 06/05 for I&D and poly-exchange. OR notes large infected hem atoma trace amount of fluid within the knee joint. This was assumed to be infected and cultured. Culture #1 growing MSSA (2 organisms IDd, but appears both are MSSA). 2nd culture also growing MSSA. 06/06 WBC 13.83, platelets 329, ESR 87, CRP 5.22, Cr 0.6 Discussion: Patient is s/p I+D and polyexchange of L TKA. Recommend he be treated with 6 weeks of targeted therapy and Rifampin ideally since this is a staph infection. Given polyexchange, he will then benefit from addition of Rifampin + oral agent for 6 months followed by suppressive antibiotic therapy for life of hardware. I will ask pharmacy to evaluate for drug interaction with Rifampin but need to ensure blood cultures are negative. He previously grew E. faecalis but did not grow from this culture (yet). I will keep vanco on, add Cefazolin on therapy. Lets wait until blood cultures are negative 48 hours before placing picc line. Recommend: -Keep vancomycin on board for 24 hours more to ensure no growth of E. faecalis -Add Cefazolin 2G IV TID -Pharm consult for Rifampin use -Oral suppressives as outlined above -PICC line after 48 hours of blood cultures negative -Plan for weekly CBCD, CMP, ESR, CRP he would best be served withoutpatient ID follow up Thank you for this consult, ID will follow with you. Consultation Information This patient recommendation is based on a telemedicine consult request which was completed asynchronously through chart review and information provided by the primary physician. The patient was not seen or examined today. The evaluation is consultative in nature and all patient care and treatment decisions can either be accepted or rejected by the patient's primary hospital-based treating physician using their own independent medical judgment for their patient. Buckle Frame Shaper contact information: Please call [facility] Call Center . (Phone Number For Physician Use Only) This is an asynchronous visit, 55 min spent reviewing chart, writing note and communcating with primary team. Time Spent Reviewing Chart: 31+ minutes History of Present Illness Reason for Consultation: Prosthetic joint infection Requesting Physician: Wellington Mena DO Attending Physician: Wellington Mena DO History of Present Illness 66 yo M with h/o b/l TKAs, with long standing osteoarthritis of L knee ultimately undergoing L TKA 01/26/2022 c/b post operative hematoma with wound breakdown and returned to the OR on 02/21/23 for evacuation. The joint was aspirated at that time and ultimately grew MSSA and ampicillin sensitive E. faecalis. He was treated with Doxycycline and Bactrim for some period of time. Patient admitted to [facility] on 06/05 and underwent I+D and polyexchange of L knee. ID consulted for prosthetic joint infection. He was not on antibiotics on admission. Over past 1 month patient has had increased pain and swelling. He was followed by Orthopaedics as outpatient and given inc CRP/ESR , 06/01/22 CRP was 11.23 admitted to [facility] on 06/05 for I&D and poly-exchange. OR notes large infected he matoma trace amount of fluid within the knee joint. This was assumed to be infected and cultured. Culture #1 growing MSSA (2 organisms IDd, but appears both are MSSA). 2nd culture also growing MSSA. 06/06 WBC 13.83, platelets 329, ESR 87, CRP 5.22, Cr 0.6 Blood cultures ordered on 06/07. Allergies Allergy/AdvReac Type Severity Reaction Status Date / Time No Known Allergies Allergy Verified 06/05/22 12:06 Home Medications Medication Instructions Recorded Confirmed Type sildenafil 100 mg tablet (Viagra) 100 mg PO DAILY PRN INTERCOURSE 06/05/19 06/05/22 History ascorbic acid (vitamin C) 500 mg 500 mg PO QAM 12/24/21 06/05/22 History tablet (Vitamin C) cholecalciferol (vitamin D3) 25 25 mcg PO QAM 12/24/21 06/05/22 History mcg (1,000 unit) capsule (Vitamin D3) oregano oil 1,500 mg capsule 1,500 mg PO DAILY PRN Cold Symptoms 12/24/21 06/05/22 History tangerine oil (bulk) ([place] 1 ea miscellaneous QAM 12/24/21 06/05/22 History Oil, Natural) zinc 50 mg tablet 50 mg PO QAM 12/24/21 06/05/22 History quercetin 500 mg capsule 500 mg PO QAM 02/20/22 06/05/22 History Patient History Medical History Osteoarthritis Surgical History History of arthroscopy of left knee History of arthroscopy of right knee History of back surgery History of carpal tunnel release of both wrists History of surgery evacuation of hematoma of left knee 02/21/22 @ [facility] History of total right knee replacement Hx of colonoscopy Status post left knee replacement (~01/2022) 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 No issues noted per post-op anesthesia progress note. Family History Father Diabetes Colorectal cancer Mother Brain cancer Diabetes Other No family history of adverse response to anesthesia Social History Smoking Status: Never smoker Second Hand Exposure: No; Do You Dip or Chew Tobacco: No; Tobacco Cessation Education Requested by Patient: No Hx Alcohol Use: No Hx Substance Use: No Preferred Language: Telugu Communication Ability: Effective Kier Hand Required: No Beliefs That Will Affect Care: None marital status: Current Living Situation: Spouse current occupational status: employed How many Children do You have: 1 Other Information That Helps Us Care for You: No Feels Safe at Home: Yes Safety Concerns: Feels Safe At This Time Physical Activity Frequency: 3-4 Times per Week Assistive Devices: Cane, Raised Toilet Seat and Walker Assistive Devices Comment: full upper/lower dentures Review of System Not done d/t Econsultation. Physical Exam Physical Exam: Not done d/t econsultation Results & Data ([facility]) Vital Signs (Past 12 Hours) Vital Signs Temp Pulse Resp BP Pulse Ox O2 Del Method 06/08/22 07:38 36.3 C L 96 H 16 152/93 H 99 Room Air Laboratory Results Laboratory Results - last 48 hr 06/06/22 06/07/22 06/07/22 17:12 06:09 06:09 WBC 13.83 H RBC 3.39 L Hgb 8.5 L Hct 26.1 L MCV 77.0 L MCH 25.1 MCHC 32.6 RDW Std Deviation 43.3 RDW Coeff of Moises 15.5 H Plt Count 329 MPV 8.3 L Sodium 137 Potassium 3.9 Chloride 106 Carbon Dioxide 27 Anion Gap 4 BUN 16 Creatinine 0.62 Est Cr Clr Drug Dosing 143.5 Est GFR ( Amer) 118.1 Est GFR (Non-Af Amer) 101.9 BUN/Creatinine Ratio 25.8 H Glucose 79 Calcium 8.5 Magnesium 1.7 Random Vancomycin 6.5 L 06/07/22 06/08/22 06/08/22 06:09 06:19 06:19 WBC 9.89 10.06 RBC 3.28 L 3.56 L Hgb 8.1 L 8.8 L Hct 25.5 L 27.5 L MCV 77.7 L 77.2 L MCH 24.7 L 24.7 L MCHC 31.8 L 32.0 RDW Std Deviation 43.8 43.8 RDW Coeff of Moiess 15.5 H 15.7 H Plt Count 307 340 MPV 8.6 L 8.5 L Sodium 135 L Potassium 3.9 Chloride 100 Carbon Dioxide 30 Anion Gap 5 BUN 16 Creatinine 0.77 Est Cr Clr Drug Dosing 115.6 Est GFR ( Amer) 108.1 Est GFR (Non-Af Amer) 93.2 BUN/Creatinine Ratio 20.8 H Glucose 83 Calcium 8.7 Magnesium Random Vancomycin Diagnostic Findings Microbiology 06/05/22 Unknown Knee,Left Gram Stain - Final 06/05/22 Unknown Knee,Left Aerobic and Anaerobic Culture - Preliminary Staphylococcus aureus Staphylococcus aureus#2 06/05/22 Unknown Knee,Left Gram Stain - Final 06/05/22 Unknown Knee,Left Aerobic and Anaerobic Culture - Preliminary Staphylococcus aureus Staphylococcus aureus#2 Medications Administered Current Inpatient Medications Aspirin (Aspirin 81 Mg Ectab) 81 mg PO BID PENDING SALE TO [facility] Stop: 07/05/22 20:59 Last Admin: 06/08/22 08:23 Dose: 81 mg Bisacodyl (Bisacodyl 10 Mg Supp) 10 mg AL DAILY PRN PRN Reason: Constipation Stop: 07/05/22 18:41 Docusate Sodium (Docusate Sodium 100 Mg Cap) 100 mg PO BID PENDING SALE TO [facility] Stop: 07/05/22 20:59 Last Admin: 06/08/22 08:23 Dose: Not Given Ferrous Sulfate (Ferrous Sulfate 325 Mg Tab) 325 mg PO QAM PENDING SALE TO [facility] Stop: 07/07/22 11:14 Last Admin: 06/08/22 08:23 Dose: 325 mg Hydromorphone HCl (Hydromorphone Inj 0.5 Mg/0.5 Ml Syr) 0.5 mg IV Q4H PRN PRN Reason: Pain or Pre PT Stop: 06/19/22 18:41 Vancomycin HCl 1,250 mg/ (Sodium Chloride) 275 mls @ 200 mls/hr IV Q8H PENDING SALE TO [facility] Stop: 07/18/22 17:59 Last Infusion: 06/08/22 04:50 Dose: Infused Magnesium Hydroxide (Magnesium Hydroxide Susp 30 Ml Udc) 30 ml PO Q6H PRN PRN Reason: Constipation Stop: 07/05/22 18:41 Metoclopramide HCl (Metoclopramide Hcl Inj 5 Mg/Ml 2 Ml Vial) 10 mg IV Q6H PRN PRN Reason: Nausea And Vomiting Stop: 07/05/22 18:41 Miscellaneous Information (Vancomycin Consult Active) 1 each N/A UD PRN PRN Reason: Consult Stop: 07/05/22 18:41 Multivitamins (Multivitamin Tab) 1 tab PO QAM PENDING SALE TO [facility] Stop: 07/06/22 08:59 Last Admin: 06/08/22 08:23 Dose: 1 tab Naloxone HCl (Naloxone Hcl 0.4 Mg/1 Ml Vial/Carp) 0.1 mg IV Q5M PRN PRN Reason: Oversedation/Resp Depression Stop: 07/05/22 18:41 Ondansetron HCl (Ondansetron Inj 2 Mg/Ml 2 Ml Vial) 4 mg IV Q6H PRN PRN Reason: Nausea And Vomiting Stop: 07/05/22 18:41 Oxycodone HCl (Oxycodone Hcl Ir 5 Mg Tab (Immediate Release)) 5 - 10 mg PO Q4H PRN PRN Reason: Pain or Pre PT Stop: 06/19/22 18:41 Last Admin: 06/07/22 09:58 Dose: 5 mg Pantoprazole Sodium (Pantoprazole 40 Mg Tab) [facility] [place] Stop: 07/06/22 08:59 Last Admin: 06/08/22 08:23 Dose: 40 mg Polyethylene Glycol (Polyethylene (Miralax) 17 Gm Pack) 17 gm PO DAILY AWA Stop: 07/06/22 09:44 Last Admin: 06/08/22 08:12 Dose: Not Given Sennosides (Senna 8.6 Mg Tab) 17.2 mg PO HS PENDING SALE TO [facility] Stop: 07/05/22 20:59 Last Admin: 06/07/22 19:31 Dose: 17.2 mg
[2022-06-08] MEDS ORDERED: VANCOMYCIN LEVEL ONE (11:30)
--- NOTE | 2022-06-08 13:13 | Pharmacy Report ---
Pharmacy Vanc AUC Short Note - Date of Service June 08, 2022 - Assessment & Plan Assessment 66 year old M receiving Vancomycin for treatment of possible prosthetic joint infection. * Afebrile. Renal fxn stable. * L knee culture from OR grew MSSA. Recommended de-escalation to Ancef but bhavna lozano would like to continue Vancomycin until cultures are final given Enterococcus growing in knee cx from February 2022. * Checking with provider tomorrow (06/09/22) if vancomycin therapy should be discontinued per infectious disease note. Plan Vancomycin * Continue Vancomycin 1,250 mg IV q8h * Trough from 06/08/22: 12.8 * AUC/JULISA is the preferred PK/PD target for vancomycin * AUC guided dosing is effective and associated with decreased risk of nephrotoxicity compared to traditional trough targets * Trough level of 558 mcg/mL is predicted to achieve target AUC/JULISA of 400-600 mg/L.hr and may be associated with a 12 % risk of nephrotoxicity * Trough or random level ordered for: to be determined Pharmacy will continue to follow and will adjust dose/frequency as necessary. Thank you.
[2022-06-08] MEDS: ceFAZolin 2000MG 2,000 MG/15 ML SYR IV SCH ×2 (13:55→20:34)
[2022-06-08] MEDS: SENNA 8.6 MG TAB PO SCH (20:28)
[2022-06-09] MEDS: ceFAZolin 2000MG 2,000 MG/15 ML SYR IV SCH ×3 (03:42→20:21)
[2022-06-09] MEDS: VANCOMYCIN HCL 1,250 MG in SODIUM CHLORIDE 0.9% 250 ML IV SCH ×2 (03:42→13:13)
--- NOTE | 2022-06-09 07:02 | Orthopedic Progress Note ---
Date of Service June 09, 2022 Assessment & Plan (1) Infection of total knee replacement: The cultures have grown out staph aureus. He was seen by infectious disease yesterday. They would like to make sure the cultures do not grow out Enterococcus before they take him off the vancomycin and switch him to a cephalosporin. He was started on rifampin orally. We are awaiting blood cultures to be negative for 48 hours before the PICC line is placed. A PICC line consent has already been obtained. If the PICC line can be placed later today, and if the cultures do not grow out Enterococcus, and if things can be set up with case management, he could potentially go home later this afternoon. Otherwise, we will send him home tomorrow. Eric Gongora was seen and examined at bedside this morning. Overall he is doing very well. He says his knee feels much better than it did preoperatively. He has been working well with physical therapy. He has been able to get some sleep at night. He has tolerated the antibiotics well. He has no complaints.. Review of Systems All systems reviewed & are unremarkable except as noted in HPI & below. Physical Exam On physical examination of the left leg, the dressing has a little bit of bloody drainage but not much. He has active dorsiflexion plantarflexion of his left ankle. Sensations intact throughout.. Results & Data Results & Data Laboratory Results . Diagnostic Findings . PG Care Time/CCT Total # of Minutes Spent Total Time Spent with Patient: Total time spent is greater than 50% in coordination of care (as documented) at patient's floor/unit and/or counseling patient: Coding Level of Care Code 82735 Post Operative Follow-Up Diagnoses Infection of total knee replacement T84.59XA; Z96.659
[2022-06-09] MEDS: ASPIRIN 81 MG ECTAB PO SCH ×2 (08:43→20:22)
[2022-06-09] MEDS: DOCUSATE SODIUM 100 MG CAP PO SCH ×2 (08:43→20:21)
[2022-06-09] MEDS: PANTOprazole 40 MG TAB PO SCH (08:43)
[2022-06-09] MEDS: FERROUS SULFATE 325 MG TAB PO SCH (08:43)
[2022-06-09] MEDS: MULTIVITAMIN TAB PO SCH (08:44)
[2022-06-09] MEDS: POLYETHYLENE (MIRALAX) 17 GM PACK PO SCH (08:44)
[2022-06-09] MEDS: rifAMPin 300 MG CAPSULE PO SCH ×2 (08:46→20:22)
--- NOTE | 2022-06-09 12:48 | Infectious Disease Progress Nt ---
Date of Service June 09, 2022 Assessment & Plan (1) Infection of total knee replacement: (2) Status post left knee replacement: (3) Hematoma of left knee region: Plan 66 yo M with h/o long standing osteoarthritis of L knee ultimately undergoing L TKA 01/26/2022 c/b post operative hematoma with wound breakdown and returned to the OR on 02/21/23 for evacuation. The joint was aspirated at that time and ultimately grew MSSA and ampicillin sensitive E. faecalis. He was treated with Doxycycline and Bactrim. He completed this in April and has been off antibiotics for at least 6 weeks prior to admission. Patient admitted to [facility] on 06/05 and underwent I+D and polyexchange of L knee. ID consulted for prosthetic joint infection. Over past 1 month patient has had increased pain and swelling. He was followed by Orthopaedics as outpatient and given inc CRP/ESR , 06/01/22 CRP was 11.23 admitted to [facility] on 06/05 for I&D and poly-exchange. OR notes large infected hematoma trace amount of fluid within the knee joint. This was assumed to be infected and cultured. Culture #1 growing MSSA (2 organisms IDd, but appears both are MSSA). 2nd culture also growing MSSA. 06/06 WBC 13.83, platelets 329, ESR 87, CRP 5.22, Cr 0.6 Discussion: Patient is s/p I+D and polyexchange of L TKA. Recommend he be treated with 6 weeks of targeted therapy and Rifampin ideally since this is a staph infection. Given polyexchange, he will then benefit from addition of Rifampin + oral agent for 6 months followed by suppressive antibiotic therapy for life of hardware. I will ask pharmacy to evaluate for drug interaction with Rifampin but need to ensure blood cultures are negative. He previously grew E. faecalis but did not grow from this culture (yet). I will keep vanco on, add Cefazolin on therapy. Lets wait until blood cultures are negative 48 hours before placing picc line. Recommend: -Discontinue vancomycin as there is no growth of E. faecalis -Continue with Cefazolin 2G IV TID, plan for 6 weeks through 07/17/22, when his IV antibiotics have ended he should be changed to Cefadroxil 500 mg PO BID for at least 1 year (if tolerates then indefinitiely) -Pharm consult for Rifampin if OK start Rifampin PO 300mg BID this will be for 6 months total through 12/07/22 -PICC line after 48 hours of blood cultures negative, ok to place today -Plan for weekly CBCD, CMP, ESR, CRP he would best be served with patient ID follow up -Case management/Primary please help patient set up Infectious diseases follow up in local community to help with antibiotics especially with Rifampin and IV antibiotics -I discussed with patient AEs related to antibiotics including hepatitis, diarrhea and PICC line hygience Thank you for this consult, ID will follow will sign off. Admission and Anticipated Discharge Date Admission Date: June 05, 2022 Subjective Subsequent visit was provided via telemedicine using two-way real-time interactive telecommunication between the patient and the telemedicine provider. For the duration of the visit, the provider was performing the assessment from a different facility than the patient. This includesuse of bluetooth stethoscope forauscultationperformed by the telepresenter that the telemedi cine provider can hear if described in the physical exam. Target Network Analyst contact information: Please call [facility] Call Center . (Phone Number For Physician Use Only) After establishing a telemedicine visit, patient was: Patient was verified with two unique identifiers, Patient/authorized rep acknowledged consent and un derstanding and Gave permission to continue telehealth session Time Spent with Patient: Subsequent => 35 min Patient without complaints. He will be discharged home. Physical Exam Constitutional: NAD Musculoskeletal: L leg wrapped Skin: PIVs Results & Data ([facility]) Vital Signs (Past 12 Hours) Vital Signs Temp Pulse Resp BP Pulse Ox O2 Del Method 06/09/22 07:47 36.6 C 102 H 16 124/85 98 Room Air Laboratory Results Laboratory Results - last 48 hr 06/08/22 06/08/22 06/08/22 06:19 06:19 11:41 WBC 10.06 RBC 3.56 L Hgb 8.8 L Hct 27.5 L MCV 77.2 L MCH 24.7 L MCHC 32.0 RDW Std Deviation 43.8 RDW Coeff of Moises 15.7 H Plt Count 340 MPV 8.5 L Sodium 135 L Potassium 3.9 Chloride 100 Carbon Dioxide 30 Anion Gap 5 BUN 16 Creatinine 0.77 Est Cr Clr Drug Dosing 115.6 Est GFR ( Amer) 108.1 Est GFR (Non-Af Amer) 93.2 BUN/Creatinine Ratio 20.8 H Glucose 83 Calcium 8.7 Vancomycin Trough 12.8 Microbiology 06/05/22 Unknown Knee,Left Gram Stain - Final 06/05/22 Unknown Knee,Left Aerobic and Anaerobic Culture - Preliminary Staphylococcus aureus Staphylococcus aureus#2 06/07/22 18:51 Blood Aerobic Blood Culture - Preliminary No growth in Aerobic bottle after 24 hours. 06/07/22 18:51 Blood Anaerobic Blood Culture - Preliminary No growth in Anaerobic bottle after 24 hours. 06/07/22 18:32 Blood Aerobic Blood Culture - Preliminary No growth in Aerobic bottle after 24 hours. 06/07/22 18:32 Blood Anaerobic Blood Culture - Preliminary No growth in Anaerobic bottle after 24 hours. 06/05/22 Unknown Knee,Left Gram Stain - Final 06/05/22 Unknown Knee,Left Aerobic and Anaerobic Culture - Preliminary Staphylococcus aureus Staphylococcus aureus#2 Aero/Ginny Cult Preliminary 06/09/22-0939 Organism 1 Staphylococcus aureus Quantity Few Sens Sensitivities to Follow No Anaerobes Isolated No Anaerobes Isolated Organism 2 Staphylococcus aureus#2 Quantity Few Sens No Sensitivities to Follow Identification and susceptibility testing have confirmed the two organisms previously reported are the same organism. No susceptibility results will be generated on the second isolate. S aureus RX M.I.C. --- --------- Clindamycin R <=0.5 Daptomycin S 1 Erythromycin R >4 Oxacillin S 0.5 Tetracycline S <=4 Trimeth/Sulfa S <=0.5/9.5 Vancomycin S 2
--- NOTE | 2022-06-09 14:55 | XRay Report ---
SINGLE VIEW CHEST CLINICAL HISTORY: PICC placement FINDINGS: An AP, portable, upright chest radiograph is compared to study dated 12/29/2021. A right PIC C line has been placed. The tip of the catheter projects over the SVC. The heart is mildly enlarged. The pulmonary vasculature is noncongested. The lungs and pleural spaces are clear noting mild bibasil ar atelectasis. No pneumothorax is seen. The skeletal structures are osteopenic. The bony thorax is g rossly intact. A right shoulder arthroplasty is in place. IMPRESSION: 1. A right PICC line has been placed as above. 2. Mild cardiomegaly with no acute cardiopulmonary abnormality. ACT 112: Negative or not required by law. Electronically signed by: Levi Peace M.D. 06/09/2022 2:53 PM
[2022-06-09] MEDS: SENNA 8.6 MG TAB PO SCH (20:22)
[2022-06-10] MEDS: ceFAZolin 2000MG 2,000 MG/15 ML SYR IV SCH ×2 (04:05→11:50)
[2022-06-10] MEDS: MULTIVITAMIN TAB PO SCH (09:11)
[2022-06-10] MEDS: PANTOprazole 40 MG TAB PO SCH (09:11)
[2022-06-10] MEDS: ASPIRIN 81 MG ECTAB PO SCH (09:11)
[2022-06-10] MEDS: rifAMPin 300 MG CAPSULE PO SCH (09:13)
[2022-06-10] MEDS: FERROUS SULFATE 325 MG TAB PO SCH (09:13)
[2022-06-10] MEDS: POLYETHYLENE (MIRALAX) 17 GM PACK PO SCH (09:13)
[2022-06-10] MEDS: DOCUSATE SODIUM 100 MG CAP PO SCH (09:14)
--- NOTE | 2022-06-10 17:41 | Orthopedic Progress Note ---
Date of Service June 10, 2022 Assessment & Plan (1) Infection of total knee replacement: Cultures grew out Staph aureus. He has been switched to Ancef IV and rifampin p.o. He has a PICC line placed. He will be discharged home on these medications. We will obtain weekly lab values as well. I will continue to follow him closely. He can be weightbearing as tolerated with his knee. He is scheduled to come back to our office in 2 weeks for staple removal. Eric Rolan was seen and examined at bedside this morning. Overall he is doing very well. He is not having too much pain in the left knee. He is tolerating the antibiotics well. He has been switched to Ancef and is currently on oral rifampin. He has had a PICC line placed.. Review of Systems All systems reviewed & are unremarkable except as noted in HPI & below. Physical Exam Physical examination the left knee, the dressing is a little bit of bloody drainage and the nurse is changing it. He has good motion of 0 to 90 degrees.. Results & Data Results & Data Laboratory Results . Diagnostic Findings . PG Care Time/CCT Total # of Minutes Spent Total Time Spent with Patient: Total time spent is greater than 50% in coordination of care (as documented) at patient's floor/unit and/or counseling patient: Coding Level of Care Code 02971 Post Operative Follow-Up Diagnoses Infection of total knee replacement T84.59XA; Z96.659
--- NOTE | 2022-06-10 17:45 | Discharge Summary ---
Date of Service June 10, 2022 Principal Diagnosis Same as "Discharge Diagnosis" noted below under Discharge Instructions. Discharge Exam Physical examination the left knee, the dressing is a little bit of bloody drainage and the nurse is changing it. He has good motion of 0 to 90 degrees.. Discharge Data Consultations 06/05/22 18:42 Consult Hospitalist Routine Consult Infectious Diseases Routine Procedures Performed Operation Date: 06/05/22 14:00 Actual Procedures p Open Incision and Drainage, Polyethyline Exchange Left Knee(Left) - Wellington Mena DO Ordered Studies 06/05/22 05:00 US - OR guided needle placemen Routine Hospital Course (1) Infection of total knee replacement: On June 05, 2022 Rolan arrived at [facility] and underwent an open I&D of his left knee without complication. He had 2 Hemovac drains placed. He is initially started on vancomycin and given Ancef for DVT prophylaxis. He was transferred to the general orthopedic floors. On postop day #1 he was doing well. He was not having too much pain in this knee. We were waiting for cultures to come back. He was tolerating the vancomycin well. On postop day #2 he continues to do well. Initial cultures were growing back staph aureus. Blood cultures were obtained for potential PICC line. On postop day #3 continue to do well. He was seen by infectious disease. Final cultures grew back staph. He was started on rifampin p.o. and the vancomycin was discontinued and he was started on Ancef every 8 hours. The PICC line was placed. On postop day #4 he was doing well. Case management had worked at making sure he has antibiotics ready for discharge. He was then discharged to home. He will follow-up with orthopedics in 2 weeks. PG Care Time/CCT Total # of Minutes Spent Total Time Spent with Patient: Total time spent is greater than 50% in coordination of care (as documented) at patient's floor/unit and/or counseling patient: Discharge Plan Discharge Items Patient Disposition: Home - Home Health Services Reason For Visit: POST SURGICAL CARE Discharge Diagnosis: Infected left knee replacement Activity: Per Instructions section Non-emergency contact: Surgeon Call non-emergency contact if: your wound has increased redness and your wound has increased drainage Follow-up/Referrals: Rae Gutierrez PA-C [Primary Care Provider] - (PCP IS A [place] PHYSICIAN. PLEASE CALL TO MAKE A HOSPITAL FOLLOW UP VISIT 7-10 DAYS AFTER DISCHARGE.) Diet: Regular Addtl Attending Provider Instructions: Activity and Therapy Recommendations: * If you are using [facility] then therapy will be provided at your home until they feel you have accomplished all of your goals. * If you are using [facility] then Physical Therapy will be provided until they feel you are ready to start Outpatient Physical Therapy. * If you are not using home therapy then Outpatient Physical Therapy should start about 3-5 days from your day of surgery. Therapy will last about 6-10 weeks * It is important not to put a pillow under your knee when you are relaxing or sleeping. It is just as important to make sure you are getting your knee perfectly straight as it is to regain your knee bend. * You were shown a series of exercises in the hospital. Do these exercises three times each day including the exercises you were shown in physical therapy. * Get up and walk several times each day. For the first four weeks, try not to stand or walk for more than one hour at a time. If you do stand or walk for more than one hour, you will not hurt anything, but your leg will likely swell. * As you feel comfortable, you may change from the walker or crutches to a cane and then to independent walking. Medications: * Narcotic You will likely be sent home from the hospital with a prescription for the narcotic pain medication that worked best throughout your stay. * Aspirin Most patients will be required to take Aspirin 81mg twice a day for 6 weeks after surgery. This is obtained [id number] and a prescription is not necessary. * Other medications may be prescribed for specific circumstances. If you have any questions, please call the office at . * Resume previous home medications unless otherwise instructed TEDs/Elastic Stockings: The white elastic stockings help limit swelling and prevent blood clots from forming in your legs.~ The more you wear them, the more they work. Wear them for six weeks. Dressing Care: The dressing can be changed after physical therapy on postop day #1. Daily dry dressing changes for a few days, especially if the incision is still draining some. If the incision is not draining then you may leave the rupert open to air. If there is a little bit of drainage or if the rupert are getting stuck on your clothing then cover the incision with a dry dressing. The rupert will be removed at your 2 week follow-up appointment. Showering: You may shower 5 days from the day of surgery as long as the incision is no longer draining. You may shower with the rupert exposed. Let soapy water run over the rupert and pat them dry. Do not scrub or soak the incision. Things To Watch For: * Drainage from the incision site that occurs more than one week after your surgery. * Increased redness at the incision site. * Fever above 102 degrees Fahrenheit. * Unusual chest pain or shortness of breath. * Call [facility] at with any of the above problems Follow-Up Visit: Follow-up with Dr. Mena's PA (Wellington Velasco) 2-3 weeks after your day of surgery. He will remove your rupert and answer any questions. If you have any additional questions or concerns, Dr Mena is usually in the office at the same time and will be available An appointment was probably scheduled when you signed-up for surgery in the office. If you have any questions call Office Instructions: More detailed instructions as well as Frequently Asked Questions were provided in a folder by our office when you signed-up for surgery. Please review these instructions when you get home. If you have any further questions or concerns, please feel free to call the office at [phone] Pending Studies at Discharge: No Stand-Alone Forms: My [facility] Medications and DC Order Prescriptions: New aspirin 81 mg Tablet,Delayed Release (Dr/Ec) 81 mg PO BID 42 Days Qty: 84 0RF rifampin 300 mg Capsule 300 mg PO BID Qty: 60 3RF Continued sildenafil [Viagra] 100 mg Tablet 100 mg PO DAILY PRN (Reason: INTERCOURSE) ascorbic acid (vitamin C) [Vitamin C] 500 mg Tablet 500 mg PO QAM zinc 50 mg Tablet 50 mg PO QAM cholecalciferol (vitamin D3) [Vitamin D3] 25 mcg (1,000 unit) Capsule 25 mcg PO QAM oregano oil 1,500 mg Capsule 1,500 mg PO DAILY PRN (Reason: Cold Symptoms) tangerine oil (bulk) [[place] Oil, Natural] Oil 1 ea MISCELLANEOUS QAM quercetin 500 mg Capsule 500 mg PO QAM Discharge Orders: Discharge Order (Routine); Ordered 06/10/22 Ordered By: Wellington Mena Admission Data Admit Date/Time: 06/05/22 16:19 Attending Provider: Wellington Mena Admit Provider: Wellington Mena Primary Care Provider: Rae Gutierrez Other Providers: Juan Villarreal ; Paola Solomon ; Inocencio Mendez ; Orlando Pruett ; Gabino Fulton ; Levi Hill ; Annetta Mcghee ; Rosemary Barclay ; Harsha Kasper ; Huber Diaz ; Flory Patel ; Tashi Lundberg ; Fuad Yang ; Jossy Lopez ; Soraida Culp ; Sandra Johnson ; Negrito Dumont ; Arley Pineda ; Lamar Elliott ; Paola Lopez ; Mo Stephenson ; Wilton Negrete ; Inocencio Riley ; Mandi Myles ; Ezekiel Vences ; Edgard Tanner ; Nadeen Walters ; Steven Valladares ; Ronel Ortiz ; Pk Avila ; Tana Toney ; Vipin Carbajal ; Jasmina Day SVanesa ; Amy Enriquez ; Sher Stoo SVanesa ; Jamee Machuca ; Angy Castillo ; Michael Ramachandran ; Rosa Maria Maldonado ; Vane Crowley ; Patito Rangel ; Kristi Maza ; Tanya Veronica ; Nanette Zuñiga ; Stephanie Mcneil ; [facility] ; [facility] Other Interventions: Discharge Summary Assessment (RN) Last Done: 06/10/22 12:14
== END 2022-06-10 12:52 | disposition home health service (06) | DRG 486 ==
LOC: ASU 11:28 → 3E 16:19